=== PATIENT | male | born 1955 | race American Indian/Alaskan Native ===

== ENCOUNTER 2017-03-02 12:40 | Inpatient (IN) | payer BC ==
[2017-03-02] MEDS ORDERED: Albuterol-Ipratrop 3 mg / 0.5 (3 ml) UD INH STA (13:36)
--- NOTE | 2017-03-02 13:44 | ED PDOC ---
HPI: General Adult Time Seen by Provider: 03/02/17 12:59 Chief Complaint (Nursing): Shortness Of Breath Chief Complaint (Provider): Shortness Of Breath History Per: Patient History/Exam Limitations: no limitations Onset/Duration Of Symptoms: Days Current Symptoms Are (Timing): Still Present Additional Complaint(s): 61 year old male with a past medical history of hypertension and pre-diabetes who presents to the emergency department with a complaint of an upper/lower back pain and shortness of breath that radiates around to the chest with tightness described feeling like a "rock." Associated with episodes of vomiting with inability to tolerate solids for several weeks. Reports his right hand at times goes numbness and applying rubbing cream on it to relief the numbness. Denies diarrhea or any blood in stool. PMD: Dr. Brayden Estrada MD Past Medical History Reviewed: Historical Data, Nursing Documentation, Vital Signs Vital Signs: Last Vital Signs Temp 97.7 F 03/02/17 12:50 Pulse 89 03/02/17 18:15 Resp 21 03/02/17 12:50 BP 160/99 H 03/02/17 12:50 Pulse Ox 100 03/02/17 18:15 - Medical History PMH: Diabetes, HTN - Surgical History Other surgeries: 2 Hip replacement and Fractured Foot repair - Family History Family History: States: Unknown Family Hx - Social History Current smoker - smoking cessation education provided: No Ex-Smoker (has not smoked in the last 12 months): Yes Alcohol: None Drugs: Denies - Immunization History Hx Tetanus Toxoid Vaccination: No Hx Influenza Vaccination: Yes Hx Pneumococcal Vaccination: Yes - Home Medications Home Medications: Ambulatory Orders Medication Instructions Recorded Acetazolamide [Diamox Sequels] 500 mg PO BID 06/01/14 - Allergies Allergies/Adverse Reactions: Allergies Allergy/AdvReac Type Severity Reaction Status Date / Time No Known Allergies Allergy Verified 03/02/17 12:50 Review of Systems ROS Statement: Except As Marked, All Systems Reviewed And Found Negative (As per HPI, otherwise negative) Constitutional: Negative for: Fever Cardiovascular: Positive for: Chest Pain, Other (chest tightness) Respiratory: Positive for: Cough, Shortness of Breath. Negative for: Hemoptysis , Sputum Gastrointestinal: Positive for: Vomiting. Negative for: Diarrhea, Hematochezia Genitourinary Male: Positive for: Dysuria (for a long time) Musculoskeletal: Positive for: Back Pain Neurological: Positive for: Numbness (of the right arm intermittent) Physical Exam - Reviewed Nursing Documentation Reviewed: Yes Vital Signs Reviewed: Yes - Physical Exam Appears: Positive for: Non-toxic, In Acute Distress (Frail) Head Exam: Positive for: ATRAUMATIC, NORMAL INSPECTION, NORMOCEPHALIC Skin: Positive for: Warm, Dry, Pallor Eye Exam: Positive for: Normal appearance, EOMI, PERRL ENT: Positive for: Normal ENT Inspection. Negative for: Pharyngeal Erythema Cardiovascular/Chest: Positive for: Regular Rate, Rhythm. Negative for: Murmur Respiratory: Positive for: Normal Breath Sounds, Accessory Muscle Use, Respiratory Distress. Negative for: Wheezing Gastrointestinal/Abdominal: Positive for: Normal Exam, Soft. Negative for: Tenderness Back: Positive for: Other (Diffuse tenderness to the back, paraspinal and lower region). 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 Negative for: Black Stool, Blood Streaked Stool Extremity: Positive for: Normal ROM. Negative for: Pedal Edema, Swelling Neurologic/Psych: Positive for: Alert, Oriented (x3), Gait (Steady). Negative for: Motor/Sensory Deficits, Facial Droop - Laboratory Results Result Diagrams: 03/02/17 13:40 03/02/17 15:10 - ECG ECG: Positive for: Interpreted By Me, Viewed By Me ECG Rhythm: Positive for: Normal ST Segment, Sinus Rhythm, Right Bundle Branch Block Rate: 89 O2 Sat by Pulse Oximetry: 100 (RA) Pulse Ox Interpretation: Normal - Radiology X-Ray: Viewed By Me, Read By Radiologist - Progress Re-evaluation Time: 17:15 Condition: Re-examined, Improving,but remains with symptoms Medical Decision Making Medical Decision Making: Time: 1317 Initial Impression: Initial Plan: --Type and Screen --ABG Shock Panel --B-Type Natriuretic Peptide --CMP --Troponin I --CBC w/ diff --CBC w/ diff --D Dimer (COAG) --PTT & Prothrombin --Chest potable x-ray --Duoneb 3 ml INH --Blood Culture --Peak Flow Pre/Post TX --Reevaluation Time: 1340 --D-Dimer: [id number] (High) --Stool Occult Blood: Negative Time: 1359 --Normal sinus rhythm at 88 bpm with right bundle branch branch block with non specific ST changes. Unchanged from previous EKG in 2015. Time: 1401 --Chest x-ray FINDINGS: LUNGS: The lungs are clear. PLEURA: No significant pleural effusion identified, no pneumothorax apparent. CARDIOVASCULAR: Normal. OSSEOUS STRUCTURES: There is diffuse increased bone density. VISUALIZED UPPER ABDOMEN: Normal. OTHER FINDINGS: None. IMPRESSION: No active pulmonary disease. Diffuse increased bone density could be related to renal osteodystrophy however osteoblastic metastasis is also a differential consideration. Please correlate with history of prostate cancer. Time: 1408 --Angio Chest CT --Head CT --Thoracic Spine CT --Morphine 4 mg IVP Time: 1503 --BNP --BMP --Troponin I --Sodium Chloride 1L IV --Lumbar Spine CT Time: 1507 --Type and Screen --Occult Blood, Stool Time: 1555 --Head CT FINDINGS: HEMORRHAGE: No intracranial hemorrhage. BRAIN: There are focal low-attenuation areas in biparietal subcortical white matter. There is no mass, mass effect or abnormal extra-axial fluid collection. VENTRICLES: There is mild age-related global parenchymal volume loss and proportionate enlargement of the ventricles and cortical sulci. There is a cavum septum pellucidum. CALVARIUM: The skull base and calvarium are normal. PARANASAL SINUSES: Predominantly clear. MASTOID AIR CELLS: Predominantly clear. OTHER FINDINGS: None. IMPRESSION: Multifocal abnormality in biparietal subcortical white matter is nonspecific and statistically most compatible with moderate chronic microangiopathic changes however other differential considerations include age indeterminate infarction and demyelinating disease. If there is a persistent clinical concern , an MRI of the brain without and with intravenous contrast would be helpful for further evaluation. Time: 1605 --Thoracic Spine CT FINDINGS: VERTEBRAE: There is normal alignment of the thoracic vertebral bodies. There is normal thoracic kyphosis. There is no acute fracture. There are diffuse osteolytic and sclerotic lesions throughout the spine including the posterior elements. DISCS/SPINAL CANAL/NEURAL FORAMINA: Evaluation of the spinal canal and discs is limited on noncontrast examination, the spinal canal is grossly patent. PARASPINAL SOFT TISSUES: Unremarkable. OTHER FINDINGS: Moderate right and small left pleural effusions. There is a 7 mm noncalcified nodule in the right upper lobe. There is also diffuse osteolytic and blastic metastasis in the ribs and scapulae. IMPRESSION: 1. Diffuse lytic and blastic osseous metastasis. Diffuse osteolytic and blastic metastasis in the ribs and scapulae. 2. 7 mm nodule in the right upper lobe, nonspecific and could be inflammatory, primary or metastatic in etiology. Dedicated CT scan of the thorax on a nonemergent basis is recommended for complete evaluation of the lungs. 3. Moderate right and small left pleural effusions. Time: 1608 --Lumbar Spine CT FINDINGS: VERTEBRAE: There is normal alignment of the lumbar vertebral bodies. There is normal lumbar lordosis. There is no acute fracture. There is no spondylolysis or spondylolisthesis. There are diffuse osteolytic and blastic lesions in the lumbar spine and visualized pelvis. DISCS/SPINAL CANAL/NEURAL FORAMINA: Evaluation of the discs an nerve roots of cauda equina is limited on noncontrast CT examination. The spinal canal is grossly patent. PARASPINAL SOFT TISSUES: Normal. OTHER FINDINGS: None. IMPRESSION: Diffuse osteolytic and blastic metastasis in the lumbar spine and visualized pelvis. No acute fracture. Time: 1633 --Chest CT FINDINGS: PULMONARY ARTERIES: Examination is of suboptimal diagnostic quality for evaluation of pulmonary embolism due to missed bolus. Allowing for this, there are no large filling defects in the central pulmonary arteries to suggest acute pulmonary embolus evaluation of the peripheral arteries is limited. AORTA: No thoracic aortic aneurysm. LUNGS: 5 mm nodule in the posterior segment of the right upper. There is a 7 mm subpleural nodule in the right lower lobe (series 6, image 70). No focal consolidation. There is mild multifocal subsegmental atelectasis. PLEURAL SPACES: Moderate right and small left pleural effusions. No pneumothorax. HEART: No cardiomegaly. No significant pericardial effusion. LYMPH NODES: No pathologic lymphadenopathy. BONES, CHEST WALL: Diffuse osteolytic and blastic osseous metastasis. OTHER FINDINGS: Unremarkable. IMPRESSION: 1. Suboptimal diagnostic quality for evaluation of pulmonary embolism. Allowing for this, no large central pulmonary embolism. 2. 5 mm and 7 mm nodules in the right upper and lower lobes respectively. These are nonspecific and could be inflammatory or neoplastic in etiology. Short -term interval follow-up is advised. 3. Moderate right and small left pleural effusions. 4. Diffuse lytic and blastic osseous metastasis. 17:[address] Juan Estrada who agrees to admit patient. 17:[address] Morales for suspicion of pulmonary embolism. 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 Scribe~Attestation: Documented by Manjula Robertson and Peri Archuleta, acting as scribes for Kathy Peres MD. Provider Scribe~Attestation: All medical record entries made by the Scribe were at my direction and personally dictated by me. I have reviewed the chart and agree that the record accurately reflects my personal performance of the history, physical exam, medical decision making, and the department course for this patient. I have also personally directed, reviewed, and agree with the discharge instructions and disposition. Disposition - Clinical Impression Clinical Impression: Dyspnea, Pleural effusion, Lung mass, Metastasis to spinal column, Anemia, Hyponatremia, Elevated d-dimer, Respiratory alkalosis - Patient ED Disposition Is Patient to be Admitted: Yes Discussed With DrGloria: Juan Estrada Doctor Will See Patient In The: Hospital Counseled Patient/Family Regarding: Studies Performed, Diagnosis - Disposition Disposition Time: 17:31 Condition: FAIR - Pt Status Changed To: Hospital Disposition Of: Inpatient - Admit Certification Admit to Inpatient:: After my assessment, the patient will require hospitalization for at least two midnights. This is because of the severity of symptoms shown, intensity of services needed, and/or the medical risk in this patient being treated as an outpatient. - POA Present On Arrival: None
[2017-03-02 13:49] LABS: ABG ALLEN TEST YES; ARTERIAL BLOOD GAS HCO3 27.8 mmol/L (21-28); ARTERIAL BLOOD GAS O2 SAT 100.2 % (95-98); ARTERIAL BLOOD GAS PCO2 19 mm/Hg (35-45); ARTERIAL BLOOD GAS PH 7.67 (7.35-7.45); ARTERIAL BLOOD GAS PO2 134 mm/Hg (80-100); ARTERIAL BLOOD GAS TCO2 22.5 mmol/L (22-28)
[2017-03-02] MEDS ORDERED: Albuterol-Ipratrop 3 mg / 0.5 (3 ml) UD ONE (13:58)
--- NOTE | 2017-03-02 14:02 | RAD ---
HISTORY: SOB COMPARISON: No prior. FINDINGS: LUNGS: The lungs are clear. PLEURA: No significant pleural effusion identified, no pneumothorax apparent. CARDIOVASCULAR: Normal. OSSEOUS STRUCTURES: There is diffuse increased bone density. VISUALIZED UPPER ABDOMEN: Normal. OTHER FINDINGS: None. IMPRESSION: No active pulmonary disease. Diffuse increased bone density could be related to renal osteodystrophy however osteoblastic metastasis is also a differential consideration. Please correlate with history of prostate cancer.
[2017-03-02 14:04] LABS: BASO # 0.1 K/uL (0.0-0.2); BASO % 1.5 % (0.0-2.0); EOS # 0.3 K/uL (0.0-0.7); EOS % 5.2 % (0.0-4.0); HEMOGLOBIN 8.8 g/dL (12.0-18.0); LYMPH # 2.1 K/uL (1.0-4.3); LYMPH % 32.6 % (20.0-40.0); MEAN CELL VOLUME 92.8 fl (80.0-94.0); MEAN CORPUSCULAR HEMOGLOBIN 32.7 pg (27.0-31.0); MEAN CORPUSCULAR HGB CONC 35.2 g/dL (33.0-37.0); MEAN PLATELET VOLUME 8.2 fl (7.2-11.7); MONO # 0.7 K/uL (0.0-0.8); MONO % 10.7 % (0.0-10.0); NEUT # 3.2 K/uL (1.8-7.0); NRBC % 0.5 % (0.0-0.0); PLATELET COUNT 118 K/uL (130-400); RBC 2.69 Mil/uL (4.40-5.90); WHITE BLOOD COUNT 6.3 K/uL (4.8-10.8)
[2017-03-02] MEDS ORDERED: Sodium Chloride 0.9% 50 ML IV ONE (14:11)
[2017-03-02] MEDS ORDERED: Iodixanol 320 MG/ML 100 ML BOTTLE IV ONE (14:11)
[2017-03-02 14:16] LABS: INR 1.2 (0.9-1.2); PARTIAL THROMBOPLASTIN TIME 26.2 Seconds (25.6-37.1); PROTHROMBIN TIME 13.1 Seconds (9.8-13.1)
[2017-03-02] MEDS ORDERED: Morphine 4 MG/ML VIAL ONE (14:48)
[2017-03-02] MEDS ORDERED: Sodium Chloride 0.9% 1,000 ML IV STA (15:06)
[2017-03-02 15:40] LABS: BLOOD UREA NITROGEN 9 mg/dl (9-20); CALCIUM 10.4 mg/dL (8.4-10.2); GFR AFRICAN-AMERICAN > 60; GFR NON-AFRICAN AMERICAN > 60
--- NOTE | 2017-03-02 15:56 | CT ---
PROCEDURE: CT HEAD WITHOUT CONTRAST. HISTORY: numbness of right arm COMPARISON: None available. TECHNIQUE: Axial computed tomography images were obtained through the head/brain without intravenous contrast. Radiation dose: Total exam DLP = 850.32 mGy-cm. This CT exam was performed using one or more of the following dose reduction techniques: Automated exposure control, adjustment of the mA and/or kV according to patient size, and/or use of iterative reconstruction technique. FINDINGS: HEMORRHAGE: No intracranial hemorrhage. BRAIN: There are focal low-attenuation areas in biparietal subcortical white matter. There is no mass, mass effect or abnormal extra-axial fluid collection. VENTRICLES: There is mild age-related global parenchymal volume loss and proportionate enlargement of the ventricles and cortical sulci. There is a cavum septum pellucidum. CALVARIUM: The skull base and calvarium are normal. PARANASAL SINUSES: Predominantly clear. MASTOID AIR CELLS: Predominantly clear. OTHER FINDINGS: None. IMPRESSION: Multifocal abnormality in biparietal subcortical white matter is nonspecific and statistically most compatible with moderate chronic microangiopathic changes however other differential considerations include age indeterminate infarction and demyelinating disease. If there is a persistent clinical concern, an MRI of the brain without and with intravenous contrast would be helpful for further evaluation.
[2017-03-02 16:00] LABS: B-TYPE NATRIURETIC PEPTIDE 765 pg/ml (0-900)
[2017-03-02 16:02] LABS: ANISOCYTOSIS SLIGHT; BANDS 2 % (0-2); BASOPHIL 2 % (0-2); EOSINOPHIL 4 % (0-7); HYPOCHROMIC SLIGHT; LYMPHOCYTE 25 % (20-50); METAMYELOCYTE 1 % (0-0); MONOCYTE 12 % (0-10); MYELOCYTE 2 % (0-0); NEUTROPHIL 52 % (42-75); OVALOCYTES SLIGHT; PLATELET ESTIMATE DECREASED (NORMAL); SCHISTOCYTES SLIGHT; TEARDROP CELLS SLIGHT; TOTAL CELLS COUNTED 100
--- NOTE | 2017-03-02 16:06 | CT ---
PROCEDURE: CT Thoracic Spine without contrast HISTORY: Back pain COMPARISON: None. TECHNIQUE: Axial computed tomography images were obtained of the thoracic spine without intravenous contrast. Coronal and sagittal reformatted images were created and reviewed. Radiation dose: Total exam DLP = 847.64 mGy-cm. This CT exam was performed using one or more of the following dose reduction techniques: Automated exposure control, adjustment of the mA and/or kV according to patient size, and/or use of iterative reconstruction technique. FINDINGS: VERTEBRAE: There is normal alignment of the thoracic vertebral bodies. There is normal thoracic kyphosis. There is no acute fracture. There are diffuse osteolytic and sclerotic lesions throughout the spine including the posterior elements. DISCS/SPINAL CANAL/NEURAL FORAMINA: Evaluation of the spinal canal and discs is limited on noncontrast examination, the spinal canal is grossly patent. PARASPINAL SOFT TISSUES: Unremarkable. OTHER FINDINGS: Moderate right and small left pleural effusions. There is a 7 mm noncalcified nodule in the right upper lobe. There is also diffuse osteolytic and blastic metastasis in the ribs and scapulae. IMPRESSION: 1. Diffuse lytic and blastic osseous metastasis. Diffuse osteolytic and blastic metastasis in the ribs and scapulae. 2. 7 mm nodule in the right upper lobe, nonspecific and could be inflammatory, primary or metastatic in etiology. Dedicated CT scan of the thorax on a nonemergent basis is recommended for complete evaluation of the lungs. 3. Moderate right and small left pleural effusions.
--- NOTE | 2017-03-02 16:09 | CT ---
PROCEDURE: CT Lumbar Spine without contrast HISTORY: back pain COMPARISON: None. TECHNIQUE: Axial computed tomography images were obtained of the lumbar spine without the use of intravenous contrast. Coronal and sagittal reformatted images were created and reviewed. Radiation dose: Total exam DLP = mGy-cm. This CT exam was performed using one or more of the following dose reduction techniques: Automated exposure control, adjustment of the mA and/or kV according to patient size, and/or use of iterative reconstruction technique. FINDINGS: VERTEBRAE: There is normal alignment of the lumbar vertebral bodies. There is normal lumbar lordosis. There is no acute fracture. There is no spondylolysis or spondylolisthesis. There are diffuse osteolytic and blastic lesions in the lumbar spine and visualized pelvis. DISCS/SPINAL CANAL/NEURAL FORAMINA: Evaluation of the discs an nerve roots of cauda equina is limited on noncontrast CT examination. The spinal canal is grossly patent. PARASPINAL SOFT TISSUES: Normal. OTHER FINDINGS: None. IMPRESSION: Diffuse osteolytic and blastic metastasis in the lumbar spine and visualized pelvis. No acute fracture.
--- NOTE | 2017-03-02 16:35 | CT ---
PROCEDURE: CT Chest with contrast (Pulmonary Angiogram) HISTORY: Chest pain COMPARISON: None available. TECHNIQUE: Axial computed tomography images were obtained of the chest in the pulmonary arterial phase of enhancement. Coronal and sagittal reformatted images were created and reviewed. Intravenous contrast dose: 90 mL Visipaque 320 Radiation dose: Total exam DLP = 370.80 mGy-cm. This CT exam was performed using one or more of the following dose reduction techniques: Automated exposure control, adjustment of the mA and/or kV according to patient size, and/or use of iterative reconstruction technique. FINDINGS: PULMONARY ARTERIES: Examination is of suboptimal diagnostic quality for evaluation of pulmonary embolism due to missed bolus. Allowing for this, there are no large filling defects in the central pulmonary arteries to suggest acute pulmonary embolus evaluation of the peripheral arteries is limited. AORTA: No thoracic aortic aneurysm. LUNGS: 5 mm nodule in the posterior segment of the right upper. There is a 7 mm subpleural nodule in the right lower lobe (series 6, image 70). No focal consolidation. There is mild multifocal subsegmental atelectasis. PLEURAL SPACES: Moderate right and small left pleural effusions. No pneumothorax. HEART: No cardiomegaly. No significant pericardial effusion. LYMPH NODES: No pathologic lymphadenopathy. BONES, CHEST WALL: Diffuse osteolytic and blastic osseous metastasis. OTHER FINDINGS: Unremarkable. IMPRESSION: 1. Suboptimal diagnostic quality for evaluation of pulmonary embolism. Allowing for this, no large central pulmonary embolism. 2. 5 mm and 7 mm nodules in the right upper and lower lobes respectively. These are nonspecific and could be inflammatory or neoplastic in etiology. Short-term interval follow-up is advised. 3. Moderate right and small left pleural effusions. 4. Diffuse lytic and blastic osseous metastasis.
[2017-03-02] MEDS ORDERED: Enoxaparin 80 mg Syringe SC STA (16:36)
[2017-03-02] MEDS ORDERED: Iohexol 240 (50 ml) PO ONE (16:49)
[2017-03-02] MEDS ORDERED: Piperacillin/Tazobact 3.375 GM in Sodium Chloride 0.9% 100 ML IVPB STA (16:51)
[2017-03-02] MEDS ORDERED: Iohexol 240 (50 ml) ONE (17:10)
[2017-03-02] MEDS ORDERED: Piperacillin/Tazobact 3.375 gm Inj IVPB ONE (17:10)
[2017-03-02] MEDS ORDERED: Sodium Chloride 0.9% 1,000 ML IV SCH (18:45)
--- NOTE | 2017-03-02 18:51 | MRI ---
PROCEDURE: MRI BRAIN WITHOUT CONTRAST HISTORY: abnormal CT head COMPARISON: Noncontrast head CT performed earlier the same day. TECHNIQUE: Multiplanar, multisequence MR images of the brain were obtained without intravenous contrast enhancement. FINDINGS: HEMORRHAGE: None DWI: There is a small focus of restricted diffusion in the left cerebellar hemisphere. BRAIN PARENCHYMA: There are confluent T2/FLAIR hyperintense signal abnormalities in bilateral parietal subcortical white matter and there are multifocal T2/FLAIR hyperintense foci in the subcortical and deep supratentorial white matter. There is no mass, mass effect or abnormal extra-axial fluid collection. The midline sagittal structures are normal. VENTRICLES: There is mild age-related global parenchymal volume loss and proportionate enlargement of the ventricles and cortical sulci. There is a cavum septum pellucidum. CRANIUM: There is abnormal bone marrow signal in the visualized upper cervical spine and questionable T1 hypo intense lesions in the occipital calvarium. ORBITS: Grossly unremarkable. PARANASAL SINUSES/MASTOIDS: Clear VASCULAR SYSTEM: There is normal signal voids in the larger intracranial arteries. OTHER FINDINGS: None. IMPRESSION: 1. Small focus of acute infarction in the left cerebellar hemisphere. 2. Multifocal subcortical and deep supratentorial white matter changes and confluent biparietal subcortical white matter changes are statistically most compatible with moderate chronic microangiopathic changes. 3. Mild age-related global parenchymal volume loss. 4. Osseous metastasis in the upper cervical spine and question of occipital calvarial metastasis. Important findings were discussed with Dr. Minor Peres on 03/02/2017 at 6:45 p.m.
--- NOTE | 2017-03-02 19:39 | CP.PCM.PN ---
Subjective - Date & Time of Evaluation Date of Evaluation: 03/02/17 Time of Evaluation: 22:22 - Subjective Subjective: 61 yo with hx of Prostate Ca with Mets? HTN Cholest Prediabetes presented to ER with complaints of SOB and upper extremity numbness LBP and GI sx Objective - Vital Signs/Intake and Output Vital Signs (last 24 hours): Temp Pulse Resp BP Pulse Ox 97.7 F 89 20 167/82 H 100 03/02/17 12:50 03/02/17 18:16 03/02/17 17:20 03/02/17 17:20 03/02/17 18:16 - Medications Medications: Current Medications Sodium Chloride (Sodium Chloride 0.9%) 1,000 mls @ 125 mls/hr IV .Q8H MITZI Stop: 03/03/17 18:38 Morphine Sulfate (Morphine) 4 mg IVP Q6 PRN PRN Reason: Pain, severe (8-10) - Labs Labs: 03/02/17 13:40 03/02/17 15:10 PT 13.1 Seconds (9.8-13.1) 03/02/17 13:40 INR 1.2 (0.9-1.2) 03/02/17 13:40 APTT 26.2 Seconds (25.6-37.1) 03/02/17 13:40 - Respiratory Exam Respiratory Exam: NORMAL BREATHING PATTERN - Cardiovascular Exam Cardiovascular Exam: REGULAR RHYTHM - GI/Abdominal Exam GI & Abdominal Exam: Normal Bowel Sounds Assessment and Plan - Assessment and Plan (Free Text) Assessment: 61 yo with hx of Prostate Ca with Mets? HTN Cholest Prediabetes SOB and upper extremity numbness LBP and GI sx W/U ordered D/W YOLETTE CAPUTO
[2017-03-02] MEDS ORDERED: Aspirin 325 mg EC Tablets PO ONE (19:46)
--- NOTE | 2017-03-02 20:14 | CT ---
EXAM: CT Abdomen and Pelvis With Intravenous Contrast EXAM DATE/TIME: 03/02/2017 4:48 PM CLINICAL HISTORY: 61 years old, male; Pain; Abdominal pain; Generalized; Prior surgery; Surgery date: 6+ months; Surgery type: Hernia; Additional info: Back pain adbominal pain TECHNIQUE: Axial computed tomography images of the abdomen and pelvis with intravenous contrast. All CT scans at this facility use one or more dose reduction techniques, viz.: automated exposure control; ma/kV adjustment per patient size (including targeted exams where dose is matched to indication; i.e. head); or iterative reconstruction technique. Coronal and sagittal reformatted images were created and reviewed. COMPARISON: No relevant prior studies available. FINDINGS: LIMITATIONS: Streak artifact from arthroplasty devices in the hips bilaterally and from the patient's arms. Mild motion artifact LOWER THORAX: Bilateral pleural effusions, moderate on the right and small on the left. ABDOMEN: LIVER: No acute abnormality of the liver identified. GALLBLADDER AND BILE DUCTS: No CT evidence of acute cholecystitis. No evidence of significant biliary ductal dilatation. PANCREAS: Pancreatic duct is prominent in size, in the proximal pancreas, of uncertain clinical significance. No definite CT evidence of acute pancreatitis, allowing for motion artifact. SPLEEN: No acute abnormality of the spleen identified. ADRENALS: No acute abnormality of the adrenal glands identified. KIDNEYS AND URETERS: Excreted contrast in the collecting systems of the kidneys bilaterally and in the bladder, presumably from a recent study done with IV contrast. No evidence of hydroureteronephrosis. Negative. STOMACH AND BOWEL: Retained stool noted throughout the right hemicolon. Bowel is otherwise unremarkable in appearance. No evidence of small bowel obstruction. No acute abnormality of the stomach or duodenum identified. APPENDIX: Appendix is seen, and is within normal limits in appearance. PELVIS: BLADDER: No acute abnormality of the bladder identified. Negative. REPRODUCTIVE: No acute abnormality of the reproductive organs is seen, allowing for streak artifact from the hip arthroplasties. ABDOMEN and PELVIS: INTRAPERITONEAL SPACE: No evidence of free intraperitoneal air or fluid. BONES/JOINTS: Diffusely abnormal appearance of the bony structures, which demonstrate extensive areas of sclerosis and lytic change, compatible with diffuse bony metastatic disease. No acute fractures are seen. No evidence of acute vertebral compression fractures. SOFT TISSUES: No acute abnormality of the visualized soft tissues is seen. VASCULATURE: No evidence of abdominal aortic aneurysm. No evidence of periaortic hemorrhage. LYMPH NODES: No evidence of diffuse lymphadenopathy. IMPRESSION: - Bilateral pleural effusions. - Otherwise, no evidence of significant acute process. - Diffuse bony abnormality, most compatible with extensive bony metastatic disease - See above for remaining findings.
[2017-03-02 22:07] LABS: IRON 215 ug/dL (49-181)
[2017-03-02 22:16] LABS: TOTAL IRON BINDING CAPACITY 305 ug/dL (250-450)
[2017-03-02 22:20] LABS: % IRON SATURATION 70 % (20-55)
[2017-03-02] MEDS ORDERED: Influenza Vaccine 18yr & older 0.5 ML/45 MCG SYR IM ONE (23:49)
[2017-03-03] MEDS ORDERED: Sodium Chloride 0.45% 1,000 ML IV SCH (00:45)
--- NOTE | 2017-03-03 08:54 | CP.PCM.CON ---
History of Present Illness - History of Present Illness History of Present Illness: 61 year old male with a history of former tobacco abuse, admitted with back/rib pain, shortness of breath, found to have diffuse bone lesions concerning for metastatic disease. The patient reports to not eating well for the past 2-3 months, associated with weightloss. Over the last month he notes to worsening upper back and diffuse chest pain. Because of the pain occurring with deep breaths, he came to the ER. In the ER a CT angio of the chest was negative for central PE but revealed diffuse bone lesions, B/L pleural effusions, and 2 subcentimeter lung lesions. An MRI of the brain revealed an acute cerebellar stroke. Past medical history: ?HTN Past surgical history: None Family history: Father had lung cancer Social history: Former tobacco abuse, denies alcohol, and illicit drug use. Allergies: NKA Revew of systems: All remaining review of systems including HEENT, cardiovascular, respiratory, gastrointestinal, genitourinary, musculoskeletal, dermatologic, neurologic, and psychiatric are negative unless mentioned in the HPI. Past Patient History - Infectious Disease Hx of Infectious Diseases: None - Past Medical History & Family History Past Medical History?: Yes - Past Social History Smoking Status: Former Smoker - CARDIAC Hx Hypertension: Yes - MUSCULOSKELETAL/RHEUMATOLOGICAL Hx Falls: Yes - PSYCHIATRIC Hx Substance Use: No - SURGICAL HISTORY Other/Comment: Patient had left hip replacement 2010, right hip replacement 2013 -- was in subacute rehab for 2 weeks post surg in 2013 - ANESTHESIA Hx Anesthesia: Yes Hx Anesthesia Reactions: No Meds Allergies/Adverse Reactions: Allergies Allergy/AdvReac Type Severity Reaction Status Date / Time No Known Allergies Allergy Verified 03/02/17 12:50 - Medications Medications: Current Medications Home Med (Bimatoprost [Lumigan]) 1 drop TOP DAILY [facility] Home Med (Difluprednate [Durezol]) 1 drop TOP QOTHERDAY [facility] Sodium Chloride (Sodium Chloride 0.45%) 1,000 mls @ 75 mls/hr IV .[id number] [facility] Stop: 03/04/17 00:32 Last Admin: 03/03/17 00:48 Dose: 75 mls/hr Morphine Sulfate (Morphine) 4 mg IVP Q6 PRN PRN Reason: Pain, severe (8-10) Last Admin: 03/02/17 21:47 Dose: 4 mg Physical Exam - Head Exam Head Exam: ATRAUMATIC - Eye Exam Eye Exam: Normal appearance - ENT Exam ENT Exam: Mucous Membranes Dry - Respiratory Exam Respiratory Exam: Decreased Breath Sounds - Cardiovascular Exam Cardiovascular Exam: +S1, +S2 - GI/Abdominal Exam GI & Abdominal Exam: Normal Bowel Sounds - Extremities Exam Extremities exam: Positive for: normal inspection - Neurological Exam Neurological exam: Oriented x3 - Psychiatric Exam Psychiatric exam: Normal Affect, Normal Mood - Skin Skin Exam: Warm Results - Vital Signs Recent Vital Signs: Last Vital Signs Temp 98.1 F 03/03/17 08:02 Pulse 70 03/03/17 08:02 Resp 18 03/03/17 08:02 BP 116/69 03/03/17 08:02 Pulse Ox 95 03/03/17 08:02 - Labs Result Diagrams: 03/04/17 06:30 03/04/17 06:30 Labs: Laboratory Results - last 24 hr 03/02/17 03/02/17 03/02/17 13:36 13:39 13:40 WBC 6.3 RBC 2.69 L Hgb 8.8 L Hct 25.0 L MCV 92.8 MCH 32.7 H MCHC 35.2 RDW 18.0 H Plt Count 118 L MPV 8.2 Neut % (Auto) 50.0 Lymph % (Auto) 32.6 [place] % (Auto) 10.7 H Eos % (Auto) 5.2 H Baso % (Auto) 1.5 Neut # 3.2 Lymph # 2.1 [place] # 0.7 Eos # 0.3 Baso # 0.1 Neutrophils % (Manual) 52 Band Neutrophils % 2 Lymphocytes % (Manual) 25 Monocytes % (Manual) 12 H Eosinophils % (Manual) 4 Basophils % (Manual) 2 Metamyelocytes % 1 H Myelocytes % 2 H Platelet Estimate Decreased L Hypochromasia (manual) Slight Anisocytosis (manual) Slight Tear Drop Cells Slight Ovalocytes Slight Schistocytes Slight PT INR APTT D-Dimer, Quantitative pCO2 19 L* pO2 134 H HCO3 27.8 ABG pH 7.67 H* ABG Total CO2 22.5 ABG O2 Saturation 100.2 H ABG Base Excess 3.6 H Bang Test Yes ABG Potassium 4.2 A-a O2 Difference 42.0 Sodium 126.0 L Chloride 98.0 Glucose 106 Lactate 2.1 FiO2 28.0 Crit Value Called To Md belkys thornton Crit Value Called By 23 Crit Value Read Back Y Blood Gas Notified Time 1348 Potassium Carbon Dioxide Anion Gap BUN Creatinine Est GFR ( Amer) Est GFR (Non-Af Amer) POC Glucose (mg/dL) 89 Random Glucose Calcium Iron TIBC % Saturation Ferritin Troponin I NT-Pro-B Natriuret Pep Arterial Blood Potassium 4.2 Stool Occult Blood Blood Type Antibody Screen BBK History Checked 03/02/17 03/02/17 03/02/17 13:40 15:10 15:10 WBC RBC Hgb Hct MCV MCH MCHC RDW Plt Count MPV Neut % (Auto) Lymph % (Auto) [place] % (Auto) Eos % (Auto) Baso % (Auto) Neut # Lymph # [place] # Eos # Baso # Neutrophils % (Manual) Band Neutrophils % Lymphocytes % (Manual) Monocytes % (Manual) Eosinophils % (Manual) Basophils % (Manual) Metamyelocytes % Myelocytes % Platelet Estimate Hypochromasia (manual) Anisocytosis (manual) Tear Drop Cells Ovalocytes Schistocytes PT 13.1 INR 1.2 APTT 26.2 D-Dimer, Quantitative 4972 H pCO2 pO2 HCO3 ABG pH ABG Total CO2 ABG O2 Saturation ABG Base Excess Bang Test ABG Potassium A-a O2 Difference Sodium 130 L Chloride 93 L Glucose Lactate FiO2 Crit Value Called To Crit Value Called By Crit Value Read Back Blood Gas Notified Time Potassium 4.1 Carbon Dioxide 21 L Anion Gap 20 BUN 9 Creatinine 0.7 L Est GFR ( Amer) > 60 Est GFR (Non-Af Amer) > 60 POC Glucose (mg/dL) Random Glucose 96 Calcium 10.4 H Iron TIBC % Saturation Ferritin Troponin I 0.0170 NT-Pro-B Natriuret Pep 765 Arterial Blood Potassium Stool Occult Blood Negative Blood Type Antibody Screen BBK History Checked 03/02/17 03/02/17 03/02/17 15:10 18:44 20:47 WBC RBC Hgb Hct MCV MCH MCHC RDW Plt Count MPV Neut % (Auto) Lymph % (Auto) [place] % (Auto) Eos % (Auto) Baso % (Auto) Neut # Lymph # [place] # Eos # Baso # Neutrophils % (Manual) Band Neutrophils % Lymphocytes % (Manual) Monocytes % (Manual) Eosinophils % (Manual) Basophils % (Manual) Metamyelocytes % Myelocytes % Platelet Estimate Hypochromasia (manual) Anisocytosis (manual) Tear Drop Cells Ovalocytes Schistocytes PT INR APTT D-Dimer, Quantitative pCO2 pO2 HCO3 ABG pH ABG Total CO2 ABG O2 Saturation ABG Base Excess Bang Test ABG Potassium A-a O2 Difference Sodium Chloride Glucose Lactate FiO2 Crit Value Called To Crit Value Called By Crit Value Read Back Blood Gas Notified Time Potassium Carbon Dioxide Anion Gap BUN Creatinine Est GFR ( Amer) Est GFR (Non-Af Amer) POC Glucose (mg/dL) Random Glucose Calcium Iron 215 H TIBC 305 % Saturation 70 H Ferritin 711.0 H Troponin I NT-Pro-B Natriuret Pep Arterial Blood Potassium Stool Occult Blood Blood Type A POSITIVE Antibody Screen Negative BBK History Checked No verified bt 03/03/17 05:26 WBC RBC Hgb Hct MCV MCH MCHC RDW Plt Count MPV Neut % (Auto) Lymph % (Auto) [place] % (Auto) Eos % (Auto) Baso % (Auto) Neut # Lymph # [place] # Eos # Baso # Neutrophils % (Manual) Band Neutrophils % Lymphocytes % (Manual) Monocytes % (Manual) Eosinophils % (Manual) Basophils % (Manual) Metamyelocytes % Myelocytes % Platelet Estimate Hypochromasia (manual) Anisocytosis (manual) Tear Drop Cells Ovalocytes Schistocytes PT INR APTT D-Dimer, Quantitative pCO2 pO2 HCO3 ABG pH ABG Total CO2 ABG O2 Saturation ABG Base Excess Bang Test ABG Potassium A-a O2 Difference Sodium Chloride Glucose Lactate FiO2 Crit Value Called To Crit Value Called By Crit Value Read Back Blood Gas Notified Time Potassium Carbon Dioxide Anion Gap BUN Creatinine Est GFR ( Amer) Est GFR (Non-Af Amer) POC Glucose (mg/dL) 89 Random Glucose Calcium Iron TIBC % Saturation Ferritin Troponin I NT-Pro-B Natriuret Pep Arterial Blood Potassium Stool Occult Blood Blood Type Antibody Screen BBK History Checked Assessment & Plan (1) Bone lesion Assessment and Plan: concerning for metastatic disease will check tumor markers ? prostate ? multiple myeloma will need biopsy of most accessible lesion Status: Acute (2) Thrombocytopenia Assessment and Plan: mild will check HIV and hepatitis panel ? related to bone mets Status: Acute (3) Anemia Assessment and Plan: will check ferritin, retic count, b12, folate to further characterize Thank you for this interesting consult. Status: Acute
[2017-03-03] MEDS ORDERED: Patient's Own Med (Bimatoprost [Lumigan] 1 DROP) TOP SCH (09:00)
[2017-03-03 10:51] LABS: HDL CHOLESTEROL 62 MG/DL (30-70)
[2017-03-03 11:02] LABS: LDL CHOLESTEROL 113 mg/dL (0-129)
--- NOTE | 2017-03-03 11:08 | MRI ---
PROCEDURE: MR LUMBAR SPINE WITHOUT CONTRAST HISTORY: back pain mets to spine COMPARISON: Lumbar spine CT without contrast 03/12/2017. TECHNIQUE: Multiecho multiplanar sequences were performed through the lumbar spine without the use of intravenous contrast. FINDINGS: Normal lumbar lordosis. Vertebral body heights are preserved. Matter lopez Marrow signal throughout the vertebral bodies grossly abnormal including upper visualize sacrum and the posterior elements diffusely. Inferior thoracic spine as also involved in a pattern of metastatic disease to the spine. Further, incidental capture of the visualized iliac bones is also grossly abnormal indicative of the same. Conus medullaris unremarkable at the level of L1 Retroperitoneal lymphadenopathy is suspected with paraspinal soft tissues otherwise unremarkable appearing. No overt MR site of epidural metastases at this time. No gross intradural metastases either however MRI with contrast is significantly more sensitive for small to medium size epidural or intradural metastases T12-L1: No disc herniation, spinal canal stenosis or neural foraminal narrowing. L1-2: No disc herniation, spinal canal stenosis or neural foraminal narrowing. L2-3: No disc herniation, spinal canal stenosis or neural foraminal narrowing. L3-4: Bilateral facet joint arthropathy is moderate but often narrow the lateral recesses symmetrically at this level without disc herniation evident. No significant neural foraminal stenosis. L4-5: A moderate central canal stenosis results from gross facet joint arthropathy combined with limited generalized disc bulging. No disc herniation. Mild bilateral neural foraminal stenosis identified. L5-S1: No disc herniation, spinal canal stenosis or neural foraminal narrowing. OTHER FINDINGS: Incidental note is made of a grossly distended urinary bladder. IMPRESSION: Gross multifocal bony metastases seen throughout the visualized inferior thoracic, entire lumbar and visualized sacral spine as discussed above. Vertebral bodies are are affected as well as posterior elements diffusely. Iliac bones are also affected. No overt MR sign in this unenhanced exam of epidural or intrathecal metastases however MRI with and without contrast is more sensitive for further evaluation of these anatomical sections. Degenerative central canal stenosis is moderate at L4-5 and borderline at L3-4 as discussed above.
--- NOTE | 2017-03-03 11:55 | MRI ---
PROCEDURE: MR THORACIC SPINE WITHOUT CONTRAST HISTORY: back pain mets to spine COMPARISON: None available. TECHNIQUE: Multiecho multiplanar sequences were performed through the thoracic spine without the use of intravenous contrast. FINDINGS: ALIGNMENT: Normal thoracic spinal alignment. Normal thoracic kyphosis. VERTEBRA: The vertebral body heights appear adequately preserved however overall Marrow signal is grossly distorted by innumerable metastases throughout the entire thoracic spine including the cervical spine was imaged incidentally captured in the counter series provided initially. Portions of the vertebral body are expanded posteriorly encroaching the left ventral nerve roots at the T7 level, bilateral ventral nerve roots at T9 with a mild central canal stenosis resulting air, and bilateral T11 nerve roots with a borderline central canal stenosis resulting at this level. No gross epidural disturbance is identified in this unenhanced MR examination. No definite disc herniation appreciable. PARASPINAL SOFT TISSUES: Grossly nonfocal as imaged. CORD: Unremarkable thoracic cord. No volume loss, signal abnormality or syrinx. The conus appears unremarkable terminating at the upper lumbar spine. OTHER FINDINGS: None. IMPRESSION: Diffuse metastatic changes seen throughout the thoracic spine including posterior elements with incidental involving the cervical spine also identified diffusely. No severe spinal stenosis results though limited central stenosis appreciated at T9 and ventral nerve roots are also encroached at T11 and T7 levels due to deformities of the posterior henley of the vertebral bodies at these levels. No disc herniation throughout the examination. No definitive acute fracture or spondylolisthesis identified.
--- NOTE | 2017-03-03 14:15 | CP.PCM.CON ---
History of Present Illness - History of Present Illness History of Present Illness: pt is seen and examined, full consult is dictated #[id number] 1. hyponatremia, most likely sec to intravascular volume depletion s/o siadh sec to pian and mets 2. r/o metastatic disease, r/o prostate ca check cea,ca19-9, AFP, psa, urine lytes, osm, cr, tsh, serum cortisol change ivf to ns at 70- 80 ml/hr bmp in am check pth intact, pth-rp for hypercalcemia Past Patient History - Infectious Disease Hx of Infectious Diseases: None - Past Medical History & Family History Past Medical History?: Yes - Past Social History Smoking Status: Former Smoker - CARDIAC Hx Hypertension: Yes - MUSCULOSKELETAL/RHEUMATOLOGICAL Hx Falls: Yes - PSYCHIATRIC Hx Substance Use: No - SURGICAL HISTORY Other/Comment: Patient had left hip replacement 2010, right hip replacement 2013 -- was in subacute rehab for 2 weeks post surg in 2013 - ANESTHESIA Hx Anesthesia: Yes Hx Anesthesia Reactions: No Meds Allergies/Adverse Reactions: Allergies Allergy/AdvReac Type Severity Reaction Status Date / Time No Known Allergies Allergy Verified 03/02/17 12:50 - Medications Medications: Current Medications Aspirin (Aspirin Chewable) 81 mg PO DAILY [facility] Enoxaparin Sodium (Lovenox) 40 mg SC DAILY [facility] PRN Reason: Protocol Home Med (Bimatoprost [Lumigan]) 1 drop TOP DAILY [facility] Home Med (Difluprednate [Durezol]) 1 drop TOP QOTHERDAY [facility] Sodium Chloride (Sodium Chloride 0.45%) 1,000 mls @ 75 mls/hr IV .[id number] [facility] Stop: 03/04/17 00:32 Last Admin: 03/03/17 00:48 Dose: 75 mls/hr Morphine Sulfate (Morphine) 4 mg IVP Q6 PRN PRN Reason: Pain, severe (8-10) Last Admin: 03/02/17 21:47 Dose: 4 mg Results - Vital Signs Recent Vital Signs: Last Vital Signs Temp 97.6 F 03/03/17 13:49 Pulse 93 H 03/03/17 13:49 Resp 18 03/03/17 13:49 BP 120/77 03/03/17 13:49 Pulse Ox 96 03/03/17 13:49 - Labs Result Diagrams: 03/02/17 13:40 03/02/17 15:10 Labs: Laboratory Results - last 24 hr 03/02/17 03/02/17 03/02/17 13:40 13:40 15:10 WBC 6.3 RBC 2.69 L Hgb 8.8 L Hct 25.0 L MCV 92.8 MCH 32.7 H MCHC 35.2 RDW 18.0 H Plt Count 118 L MPV 8.2 Neut % (Auto) 50.0 Lymph % (Auto) 32.6 [place] % (Auto) 10.7 H Eos % (Auto) 5.2 H Baso % (Auto) 1.5 Neut # 3.2 Lymph # 2.1 [place] # 0.7 Eos # 0.3 Baso # 0.1 Neutrophils % (Manual) 52 Band Neutrophils % 2 Lymphocytes % (Manual) 25 Monocytes % (Manual) 12 H Eosinophils % (Manual) 4 Basophils % (Manual) 2 Metamyelocytes % 1 H Myelocytes % 2 H Platelet Estimate Decreased L Hypochromasia (manual) Slight Anisocytosis (manual) Slight Tear Drop Cells Slight Ovalocytes Slight Schistocytes Slight PT 13.1 INR 1.2 APTT 26.2 D-Dimer, Quantitative 4972 H Sodium 130 L Potassium 4.1 Chloride 93 L Carbon Dioxide 21 L Anion Gap 20 BUN 9 Creatinine 0.7 L Est GFR ( Amer) > 60 Est GFR (Non-Af Amer) > 60 POC Glucose (mg/dL) Random Glucose 96 Calcium 10.4 H Iron TIBC % Saturation Transferrin Ferritin Troponin I 0.0170 NT-Pro-B Natriuret Pep 765 Triglycerides Cholesterol LDL Cholesterol Direct HDL Cholesterol Carcinoembryonic Ag Prostate Specific Ag TSH 3rd Generation Stool Occult Blood Blood Type Antibody Screen BBK History Checked 03/02/17 03/02/17 03/02/17 15:10 15:10 18:44 WBC RBC Hgb Hct MCV MCH MCHC RDW Plt Count MPV Neut % (Auto) Lymph % (Auto) [place] % (Auto) Eos % (Auto) Baso % (Auto) Neut # Lymph # [place] # Eos # Baso # Neutrophils % (Manual) Band Neutrophils % Lymphocytes % (Manual) Monocytes % (Manual) Eosinophils % (Manual) Basophils % (Manual) Metamyelocytes % Myelocytes % Platelet Estimate Hypochromasia (manual) Anisocytosis (manual) Tear Drop Cells Ovalocytes Schistocytes PT INR APTT D-Dimer, Quantitative Sodium Potassium Chloride Carbon Dioxide Anion Gap BUN Creatinine Est GFR ( Amer) Est GFR (Non-Af Amer) POC Glucose (mg/dL) Random Glucose Calcium Iron TIBC % Saturation Transferrin Ferritin 711.0 H Troponin I NT-Pro-B Natriuret Pep Triglycerides Cholesterol LDL Cholesterol Direct HDL Cholesterol Carcinoembryonic Ag Prostate Specific Ag TSH 3rd Generation Stool Occult Blood Negative Blood Type A POSITIVE Antibody Screen Negative BBK History Checked No verified bt 03/02/17 03/02/17 03/03/17 18:44 20:47 05:26 WBC RBC Hgb Hct MCV MCH MCHC RDW Plt Count MPV Neut % (Auto) Lymph % (Auto) [place] % (Auto) Eos % (Auto) Baso % (Auto) Neut # Lymph # [place] # Eos # Baso # Neutrophils % (Manual) Band Neutrophils % Lymphocytes % (Manual) Monocytes % (Manual) Eosinophils % (Manual) Basophils % (Manual) Metamyelocytes % Myelocytes % Platelet Estimate Hypochromasia (manual) Anisocytosis (manual) Tear Drop Cells Ovalocytes Schistocytes PT INR APTT D-Dimer, Quantitative Sodium Potassium Chloride Carbon Dioxide Anion Gap BUN Creatinine Est GFR ( Amer) Est GFR (Non-Af Amer) POC Glucose (mg/dL) 89 Random Glucose Calcium Iron 215 H TIBC 305 % Saturation 70 H Transferrin 260.14 Ferritin Troponin I NT-Pro-B Natriuret Pep Triglycerides Cholesterol LDL Cholesterol Direct HDL Cholesterol Carcinoembryonic Ag Prostate Specific Ag TSH 3rd Generation Stool Occult Blood Blood Type Antibody Screen BBK History Checked 03/03/17 03/03/17 03/03/17 09:50 10:43 11:55 WBC RBC Hgb Hct MCV MCH MCHC RDW Plt Count MPV Neut % (Auto) Lymph % (Auto) [place] % (Auto) Eos % (Auto) Baso % (Auto) Neut # Lymph # [place] # Eos # Baso # Neutrophils % (Manual) Band Neutrophils % Lymphocytes % (Manual) Monocytes % (Manual) Eosinophils % (Manual) Basophils % (Manual) Metamyelocytes % Myelocytes % Platelet Estimate Hypochromasia (manual) Anisocytosis (manual) Tear Drop Cells Ovalocytes Schistocytes PT INR APTT D-Dimer, Quantitative Sodium Potassium Chloride Carbon Dioxide Anion Gap BUN Creatinine Est GFR ( Amer) Est GFR (Non-Af Amer) POC Glucose (mg/dL) Random Glucose Calcium Iron TIBC % Saturation Transferrin Ferritin Troponin I NT-Pro-B Natriuret Pep Triglycerides 108 Cholesterol 202 H LDL Cholesterol Direct 113 HDL Cholesterol 62 Carcinoembryonic Ag 2.2 Prostate Specific Ag 3110 H TSH 3rd Generation 1.79 Stool Occult Blood Blood Type Antibody Screen BBK History Checked 03/03/17 13:43 WBC RBC Hgb Hct MCV MCH MCHC RDW Plt Count MPV Neut % (Auto) Lymph % (Auto) [place] % (Auto) Eos % (Auto) Baso % (Auto) Neut # Lymph # [place] # Eos # Baso # Neutrophils % (Manual) Band Neutrophils % Lymphocytes % (Manual) Monocytes % (Manual) Eosinophils % (Manual) Basophils % (Manual) Metamyelocytes % Myelocytes % Platelet Estimate Hypochromasia (manual) Anisocytosis (manual) Tear Drop Cells Ovalocytes Schistocytes PT INR APTT D-Dimer, Quantitative Sodium Potassium Chloride Carbon Dioxide Anion Gap BUN Creatinine Est GFR ( Amer) Est GFR (Non-Af Amer) POC Glucose (mg/dL) 101 Random Glucose Calcium Iron TIBC % Saturation Transferrin Ferritin Troponin I NT-Pro-B Natriuret Pep Triglycerides Cholesterol LDL Cholesterol Direct HDL Cholesterol Carcinoembryonic Ag Prostate Specific Ag TSH 3rd Generation Stool Occult Blood Blood Type Antibody Screen BBK History Checked
--- NOTE | 2017-03-03 15:21 | CP.PCM.CON ---
History of Present Illness - History of Present Illness History of Present Illness: 61 year old male who was admitted because of severe back pain with shortness of breath and a right sided pleural effusion. He had been feeling poorly at home for two weeks [facility] with steadily worsening back and 'rib' pain, poor appetite and episodes of vomiting. He did have some cough, but no sputum or hemoptysis. He was unaware of fever or chills. He denies any prior complaints of dyspnea or nocturnal awakenings from respiratory related symptoms. He does have a history of bronchial asthma as a youth, but this has been quiescent for more than 30 years. He is a former cigarette smoker of 2 PPD, but quit 25 years ago. There is a family history of lung cancer in his father. Past Patient History - Infectious Disease Hx of Infectious Diseases: None - Past Medical History & Family History Past Medical History?: Yes - Past Social History Smoking Status: Former Smoker (former 2PPD smoker who stopped 25 years ago.) Chewing Tobacco Use: No Cigar Use: No Alcohol: None (former heavy alcohol intake. none for 35 years.) Drugs: Denies - CARDIAC Hx Hypertension: Yes - PULMONARY Hx Asthma: Yes - NEUROLOGICAL Hx Neurological Disorder: No - HEENT Hx Glaucoma: Yes - RENAL Hx Chronic Kidney Disease: No - ENDOCRINE/METABOLIC Hx Endocrine Disorders: No Hx Diabetes Insipidus: Yes (pre-diabetes) - HEMATOLOGICAL/ONCOLOGICAL Hx Blood Disorders: No - INTEGUMENTARY Hx Dermatological Problems: No - MUSCULOSKELETAL/RHEUMATOLOGICAL Hx Degenerative Joint Disease: Yes (both hips) Hx Falls: Yes Hx Fractures: Yes - GASTROINTESTINAL Hx Gastrointestinal Disorders: No - GENITOURINARY/GYNECOLOGICAL Hx Genitourinary Disorders: No - PSYCHIATRIC Hx Substance Use: Yes (alcohol) - SURGICAL HISTORY Hx Eye Surgery: Yes Hx Joint Replacement: Yes Hx Orthopedic Surgery: Yes Other/Comment: Patient had left hip replacement 2010, right hip replacement 2013 -- was in subacute rehab for 2 weeks post surg in 2013 - ANESTHESIA Hx Anesthesia: Yes Hx Anesthesia Reactions: No Meds Allergies/Adverse Reactions: Allergies Allergy/AdvReac Type Severity Reaction Status Date / Time No Known Allergies Allergy Verified 03/02/17 12:50 - Medications Medications: Current Medications Aspirin (Aspirin Chewable) 81 mg PO DAILY [facility] Enoxaparin Sodium (Lovenox) 40 mg SC DAILY [facility] PRN Reason: Protocol Home Med (Bimatoprost [Lumigan]) 1 drop TOP DAILY [facility] Home Med (Difluprednate [Durezol]) 1 drop TOP QOTHERDAY [facility] Sodium Chloride (Sodium Chloride 0.45%) 1,000 mls @ 75 mls/hr IV .[id number] [facility] Stop: 03/04/17 00:32 Last Admin: 03/03/17 00:48 Dose: 75 mls/hr Morphine Sulfate (Morphine) 4 mg IVP Q6 PRN PRN Reason: Pain, severe (8-10) Last Admin: 03/02/17 21:47 Dose: 4 mg Physical Exam - Additional Findings Additional findings: Thin black male who is in no acute distress at this time. Pharynx is pink and and mucous membranes are moist, no exudates. Neck is supple and trachea midline. No visible JVD, no carotid bruit. No palpable thyromegaly. No cervical or supraclavicular adenopathy. Dullness on chest percussion is noted in the right lung base posteriorly. Breath sounds are diminished bilaterally, absent in the right base posteriorly. Few scattered sonorous rhonchi are heard bilaterally. No wheezes or bronchial breath sounds. Occasional scattered dry rales are present in the lower lobes. No audible rub. Heart sounds are distant, rhythm is regular. No murmur heard. Abdomen is soft and non-tender. NABS. No dependant edema, no cyanosis. Results - Vital Signs Recent Vital Signs: Last Vital Signs Temp 97.6 F 03/03/17 13:49 Pulse 93 H 03/03/17 13:49 Resp 18 03/03/17 13:49 BP 120/77 03/03/17 13:49 Pulse Ox 96 03/03/17 13:49 - Labs Result Diagrams: 03/04/17 06:30 03/04/17 06:30 Labs: Laboratory Results - last 24 hr 03/02/17 03/02/17 03/02/17 13:40 15:10 15:10 Neutrophils % (Manual) 52 Band Neutrophils % 2 Lymphocytes % (Manual) 25 Monocytes % (Manual) 12 H Eosinophils % (Manual) 4 Basophils % (Manual) 2 Metamyelocytes % 1 H Myelocytes % 2 H Platelet Estimate Decreased L Hypochromasia (manual) Slight Anisocytosis (manual) Slight Tear Drop Cells Slight Ovalocytes Slight Schistocytes Slight Sodium 130 L Potassium 4.1 Chloride 93 L Carbon Dioxide 21 L Anion Gap 20 BUN 9 Creatinine 0.7 L Est GFR ( Amer) > 60 Est GFR (Non-Af Amer) > 60 POC Glucose (mg/dL) Random Glucose 96 Serum Osmolality Calcium 10.4 H Iron TIBC % Saturation Transferrin Ferritin Troponin I 0.0170 NT-Pro-B Natriuret Pep 765 Triglycerides Cholesterol LDL Cholesterol Direct HDL Cholesterol Alpha Fetoprotein Carcinoembryonic Ag Prostate Specific Ag TSH 3rd Generation Stool Occult Blood Negative Blood Type Antibody Screen BBK History Checked 03/02/17 03/02/17 03/02/17 15:10 18:44 18:44 Neutrophils % (Manual) Band Neutrophils % Lymphocytes % (Manual) Monocytes % (Manual) Eosinophils % (Manual) Basophils % (Manual) Metamyelocytes % Myelocytes % Platelet Estimate Hypochromasia (manual) Anisocytosis (manual) Tear Drop Cells Ovalocytes Schistocytes Sodium Potassium Chloride Carbon Dioxide Anion Gap BUN Creatinine Est GFR ( Amer) Est GFR (Non-Af Amer) POC Glucose (mg/dL) Random Glucose Serum Osmolality Calcium Iron TIBC % Saturation Transferrin 260.14 Ferritin 711.0 H Troponin I NT-Pro-B Natriuret Pep Triglycerides Cholesterol LDL Cholesterol Direct HDL Cholesterol Alpha Fetoprotein Carcinoembryonic Ag Prostate Specific Ag TSH 3rd Generation Stool Occult Blood Blood Type A POSITIVE Antibody Screen Negative BBK History Checked No verified bt 03/02/17 03/03/17 03/03/17 20:47 05:26 09:50 Neutrophils % (Manual) Band Neutrophils % Lymphocytes % (Manual) Monocytes % (Manual) Eosinophils % (Manual) Basophils % (Manual) Metamyelocytes % Myelocytes % Platelet Estimate Hypochromasia (manual) Anisocytosis (manual) Tear Drop Cells Ovalocytes Schistocytes Sodium Potassium Chloride Carbon Dioxide Anion Gap BUN Creatinine Est GFR ( Amer) Est GFR (Non-Af Amer) POC Glucose (mg/dL) 89 Random Glucose Serum Osmolality Calcium Iron 215 H TIBC 305 % Saturation 70 H Transferrin Ferritin Troponin I NT-Pro-B Natriuret Pep Triglycerides Cholesterol LDL Cholesterol Direct HDL Cholesterol Alpha Fetoprotein Carcinoembryonic Ag Prostate Specific Ag 3110 H TSH 3rd Generation Stool Occult Blood Blood Type Antibody Screen BBK History Checked 03/03/17 03/03/17 03/03/17 10:43 11:45 11:55 Neutrophils % (Manual) Band Neutrophils % Lymphocytes % (Manual) Monocytes % (Manual) Eosinophils % (Manual) Basophils % (Manual) Metamyelocytes % Myelocytes % Platelet Estimate Hypochromasia (manual) Anisocytosis (manual) Tear Drop Cells Ovalocytes Schistocytes Sodium Potassium Chloride Carbon Dioxide Anion Gap BUN Creatinine Est GFR ( Amer) Est GFR (Non-Af Amer) POC Glucose (mg/dL) Random Glucose Serum Osmolality Calcium Iron TIBC % Saturation Transferrin Ferritin Troponin I NT-Pro-B Natriuret Pep Triglycerides 108 Cholesterol 202 H LDL Cholesterol Direct 113 HDL Cholesterol 62 Alpha Fetoprotein 2.1 Carcinoembryonic Ag 2.2 Prostate Specific Ag TSH 3rd Generation 1.79 Stool Occult Blood Blood Type Antibody Screen BBK History Checked 03/03/17 03/03/17 13:40 13:43 Neutrophils % (Manual) Band Neutrophils % Lymphocytes % (Manual) Monocytes % (Manual) Eosinophils % (Manual) Basophils % (Manual) Metamyelocytes % Myelocytes % Platelet Estimate Hypochromasia (manual) Anisocytosis (manual) Tear Drop Cells Ovalocytes Schistocytes Sodium Potassium Chloride Carbon Dioxide Anion Gap BUN Creatinine Est GFR ( Amer) Est GFR (Non-Af Amer) POC Glucose (mg/dL) 101 Random Glucose Serum Osmolality 286 Calcium Iron TIBC % Saturation Transferrin Ferritin Troponin I NT-Pro-B Natriuret Pep Triglycerides Cholesterol LDL Cholesterol Direct HDL Cholesterol Alpha Fetoprotein Carcinoembryonic Ag Prostate Specific Ag TSH 3rd Generation Stool Occult Blood Blood Type Antibody Screen BBK History Checked Assessment & Plan (1) Dyspnea Status: Acute Priority: High Comment: Appears likely related to chest wall and back pain with anxiety. Has prior H/O asthma, but quiescent for >30 years. Pleural effusion surely added to breathlessness. (2) Pleural effusion Status: Acute Priority: High Comment: Etiology to be determined. Will need thoracentesis. Pleural based densities on the right may be related to the effusion. There is also a left basal pleural based density as well. Metastatic rib lesions appear to be present as well. I do not think these represent primary lung neoplasm, and would be unusual for metastatic lung disease. 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 PSA >3000, negative CEA, CA 19-9 pending would favor prostate as the primary site. - Date & Time Date: 03/03/17 Time: 15:18
--- NOTE | 2017-03-03 15:32 | CARD ---
APPROVED REPORT EXAM: Two-dimensional and M-mode echocardiogram with Doppler and color Doppler. Other Information Quality : GoodRhythm : NSR INDICATION CVA/TIA 2D DIMENSIONS IVSd1.36 (0.7-1.1cm)LVDd4.30 (3.9-5.9cm) LVOT Diameter1.60 (1.8-2.4cm)PWd1.00 (0.7-1.1cm) IVSs1.75 (0.8-1.2cm)LVDs3.02 (2.5-4.0cm) FS (%) 29.7 %PWs1.33 (0.8-1.2cm) M-Mode DIMENSIONS Left Atrium (MM)2.83 (2.5-4.0cm)IVSd1.04 (0.7-1.1cm) Aortic Root2.93 (2.2-3.7cm)LVDd5.12 (4.0-5.6cm) Aortic Cusp Exc.2.08 (1.5-2.0cm)PWd0.93 (0.7-1.1cm) IVSs1.57 cmFS (%) 38 % LVDs3.20 (2.0-3.8cm)PWs1.79 cm Mitral Valve MV E Knwkrzty42.1cm/sMV DECEL [id number] A Qiqxnirc15.5cm/s MV DIX43sfO/A ratio0.9MVA (PHT)3.74cm2 TDI Lateral E' Peak V13.77cm/sMedial E' Peak V11.33cm/sE/Lateral E'5.2 E/Medial E'6.3 Pulmonary Valve PV Peak Seahgjqe437.7cm/s Tricuspid Valve TR Peak Xxrebiko022dk/sRAP [id number] Peak Gr.22mmHg [id number] LEFT VENTRICLE The left ventricle is normal size. There is normal left ventricular wall thickness. The left ventricular function is normal. The left ventricular ejection fraction is within the normal range. The Ejection Fraction is 55-60%. There is normal LV segmental wall motion. The left ventricular diastolic function is normal. No left ventricle thrombus noted on this study. RIGHT VENTRICLE The right ventricle is normal size. There is normal right ventricular wall thickness. The right ventricular systolic function is normal. ATRIA The left atrium size is normal. The right atrium size is normal. The interatrial septum is intact with no evidence for an atrial septal defect. AORTIC VALVE The aortic valve is normal in structure. No aortic regurgitation is present. There is no aortic valvular stenosis. MITRAL VALVE The mitral valve is normal in structure. There is no evidence of mitral valve prolapse. There is no mitral valve stenosis. There is no mitral valve regurgitation noted. TRICUSPID VALVE The tricuspid valve is normal in structure. There is mild tricuspid regurgitation. There is no tricuspid valve stenosis. PULMONIC VALVE The pulmonary valve is normal in structure. There is no pulmonic valvular regurgitation. There is no pulmonic valvular stenosis. GREAT VESSELS The aortic root is normal in size. The IVC is normal in size and collapses >50% with inspiration. PERICARDIAL EFFUSION The pericardium appears normal. <Conclusion> The left ventricle is normal size. The left ventricular function is normal. The left ventricular ejection fraction is within the normal range. The Ejection Fraction is 55-60%. There is mild tricuspid regurgitation.
--- NOTE | 2017-03-03 15:48 | NM ---
COMPARISON: Chest CT with contrast 03/02/2017. TECHNIQUE: Forty mCi technetium 99-m DTPA aerosol. 5.0 mCI technetium 99-m MAA administered intravenously. FINDINGS: VENTILATION COMPONENT: There is some central deposition inhaled agent which may indicate an element of COPD though this is not dramatic. Occasional, infrequent small sub segmental and nonsegmental matched defects are identified at the bilateral lower lobes. There are no definite perfusion mismatches however. PERFUSION COMPONENT: Occasional, infrequent small sub segmental and nonsegmental perfusion defects are appreciated at the lower lobe bilaterally. IMPRESSION: Lowprobability ventilation perfusion scan for pulmonary embolism. Findings discussed with Carli Bhakta and Andrew 03/03/2017.
[2017-03-03] MEDS ORDERED: Albuterol 0.083% Inhal Sol (2.5 mg/3 mL) UD INH PRN (15:57)
[2017-03-03] MEDS: Enoxaparin 40 mg Syringe SC SCH (16:54)
--- NOTE | 2017-03-03 18:23 | CP.PCM.HP ---
History of Present Illness - History of Present Illness History of Present Illness: 61 yo with hx of Prostate Ca with Mets? HTN Cholest Prediabetes presented to ER with complaints of SOB and upper extremity numbness LBP and GI sx Present on Admission - Present on Admission Any Indicators Present on Admission: No Past Patient History - Infectious Disease Hx of Infectious Diseases: None - Past Medical History & Family History Past Medical History?: Yes - Past Social History Smoking Status: Former Smoker (former 2PPD smoker who stopped 25 years ago.) Chewing Tobacco Use: No Cigar Use: No Alcohol: None (former heavy alcohol intake. none for 35 years.) Drugs: Denies - CARDIAC Hx Hypertension: Yes - PULMONARY Hx Asthma: Yes - NEUROLOGICAL Hx Neurological Disorder: No - HEENT Hx Glaucoma: Yes - RENAL Hx Chronic Kidney Disease: No - ENDOCRINE/METABOLIC Hx Endocrine Disorders: No - HEMATOLOGICAL/ONCOLOGICAL Hx Blood Disorders: No - INTEGUMENTARY Hx Dermatological Problems: No - MUSCULOSKELETAL/RHEUMATOLOGICAL Hx Degenerative Joint Disease: Yes (both hips) Hx Falls: Yes Hx Fractures: Yes - GASTROINTESTINAL Hx Gastrointestinal Disorders: No - GENITOURINARY/GYNECOLOGICAL Hx Genitourinary Disorders: No - PSYCHIATRIC Hx Substance Use: Yes (alcohol) - SURGICAL HISTORY Hx Eye Surgery: Yes Hx Joint Replacement: Yes Hx Orthopedic Surgery: Yes Other/Comment: Patient had left hip replacement 2010, right hip replacement 2013 -- was in subacute rehab for 2 weeks post surg in 2013 - ANESTHESIA Hx Anesthesia: Yes Hx Anesthesia Reactions: No Meds Allergies/Adverse Reactions: Allergies Allergy/AdvReac Type Severity Reaction Status Date / Time No Known Allergies Allergy Verified 03/02/17 12:50 Physical Exam - Respiratory Exam Respiratory Exam: NORMAL BREATHING PATTERN - Cardiovascular Exam Cardiovascular Exam: REGULAR RHYTHM - GI/Abdominal Exam GI & Abdominal Exam: Normal Bowel Sounds Results - Vital Signs Recent Vital Signs: Last Vital Signs Temp 97.3 F L 03/03/17 15:49 Pulse 85 03/03/17 15:49 Resp 20 03/03/17 15:49 BP 113/62 03/03/17 15:49 Pulse Ox 98 03/03/17 15:49 - Labs Result Diagrams: 03/02/17 13:40 03/02/17 15:10 Labs: Laboratory Results - last 24 hr 03/02/17 03/02/17 03/02/17 18:44 18:44 20:47 POC Glucose (mg/dL) Serum Osmolality Iron 215 H TIBC 305 % Saturation 70 H Transferrin 260.14 Ferritin 711.0 H Triglycerides Cholesterol LDL Cholesterol Direct HDL Cholesterol Alpha Fetoprotein Carcinoembryonic Ag Prostate Specific Ag TSH 3rd Generation 03/03/17 03/03/17 03/03/17 05:26 09:50 10:43 POC Glucose (mg/dL) 89 Serum Osmolality Iron TIBC % Saturation Transferrin Ferritin Triglycerides 108 Cholesterol 202 H LDL Cholesterol Direct 113 HDL Cholesterol 62 Alpha Fetoprotein Carcinoembryonic Ag Prostate Specific Ag 3110 H TSH 3rd Generation 03/03/17 03/03/17 03/03/17 11:45 11:55 13:40 POC Glucose (mg/dL) Serum Osmolality 286 Iron TIBC % Saturation Transferrin Ferritin Triglycerides Cholesterol LDL Cholesterol Direct HDL Cholesterol Alpha Fetoprotein 2.1 Carcinoembryonic Ag 2.2 Prostate Specific Ag TSH 3rd Generation 1.79 03/03/17 03/03/17 13:43 16:02 POC Glucose (mg/dL) 101 95 Serum Osmolality Iron TIBC % Saturation Transferrin Ferritin Triglycerides Cholesterol LDL Cholesterol Direct HDL Cholesterol Alpha Fetoprotein Carcinoembryonic Ag Prostate Specific Ag TSH 3rd Generation Assessment & Plan - Assessment and Plan (Free Text) Assessment: SOB and back pain Prostate Ca with Mets? PE ?? Oncology Pulmonary Acute Cerebellar infarct Neurology HTN Cholest Prediabetes cont meds Metabolic abnormalities Nephrology - Date & Time Date: 03/03/17 Time: 22:22
--- NOTE | 2017-03-03 19:51 | CP.PCM.CON ---
History of Present Illness - History of Present Illness History of Present Illness: Mr. Deshpande is a 61-year-old man with a past medical history of blindness of the left eye, HTN, HLD, who presented to the ED with shortness of breath, back pain , light-headedness and numbness of the left hand. Imaging demonstrated bony mets throughout the spine and lungs. MRI of the brain showed a left cerebellar acute ischemic stroke. He is currently in NAD, and complains of back pain, but is otherwise in good spirits. Review of Systems - Constitutional Constitutional: Anorexia, Fever, Weight Loss - EENT Eyes: Blind Spots Nose/Mouth/Throat: absent: As Per HPI, Epistaxis, Nasal Congestion, Nasal Discharge, Nasal Obstruction, Nasal Trauma, Nose Pain, Post Nasal Drip, Sinus Pain, Sinus Pressure, Bleeding Gums, Change in Voice, Dental Pain, Dry Mouth, Dysphagia, Halitosis, Hoarsness, Lip Swelling, Mouth Lesions, Mouth Pain, Odynophagia, Sore Throat, Throat Swelling, Tongue Swelling, Facial Pain, Neck Pain, Neck Mass, Other - Cardiovascular Cardiovascular: Chest Pain with Activity, Diaphoresis, Lightheadedness - Respiratory Respiratory: As Per HPI - Gastrointestinal Gastrointestinal: Cramping - Genitourinary Genitourinary: absent: As Per HPI, Change in Urinary Stream, Difficulty Urinating, Dysuria, Flank Pain, Hematuria, Pyuria, Nocturia, Urinary Incontinence, Urinary Frequency, Urinary Hesitance, Urinary Urgency, Voiding Freq/Small Amts, Freq UTI, Hx Renal/Bladder Calculi, Hx /Renal Surgery, Bladder Distension, Other - Musculoskeletal Musculoskeletal: As Per HPI - Integumentary Integumentary: absent: As Per HPI, Acne, Alopecia, Bleeding Lesions, Change in Hair, Change in Nails, Change in Pigmentation, Changing Lesions, Dry Skin, Erythema, Furuncle, Hirsutism, Lesions, New Lesions, Non-Healing Lesions, Photosensitivity, Pruritus, Rash, Skin Pain, Skin Ulcer, Sores, Striae, Swelling , Unusual Bruising, Wounds, Jaundice, Other - Neurological Neurological: As Per HPI - Psychiatric Psychiatric: absent: As Per HPI, Abnormal Sleep Pattern, Anhedonia, Anxiety, Auditory Hallucinations, Behavioral Changes, Change in Appetite, Change in Libido, Confusion, Depression, Difficulty Concentrating, Hallucinations, Homicidal Ideation, Hopelessness, Irritability, Memory Loss, Mood Swings, Panic Attacks, Paranoia, Suicidal Ideation, Visual Hallucinations, Tactile Hallucinations, Other - Endocrine Endocrine: absent: As Per HPI, Change in Body Appearance, Change in Libido, Cold Intolorance, Deepening of Voice, Excessive Sweating, Fatigue, Flushing, Heat Intolorance, Increase in Ring/Shoe/Hat Size, Palpitations, Polydipsia, Polyphagia, Polyuria, Other - Hematologic/Lymphatic Hematologic: absent: As Per HPI, Easy Bleeding, Easy Bruising, Lymphadenopathy, Other Past Patient History - Infectious Disease Hx of Infectious Diseases: None - Past Medical History & Family History Past Medical History?: Yes - Past Social History Smoking Status: Former Smoker - CARDIAC Hx Hypertension: Yes - PULMONARY Hx Asthma: Yes - NEUROLOGICAL Hx Neurological Disorder: No - HEENT Hx Glaucoma: Yes - RENAL Hx Chronic Kidney Disease: No - ENDOCRINE/METABOLIC Hx Endocrine Disorders: No - HEMATOLOGICAL/ONCOLOGICAL Hx Blood Disorders: No - INTEGUMENTARY Hx Dermatological Problems: No - MUSCULOSKELETAL/RHEUMATOLOGICAL Hx Falls: Yes - GASTROINTESTINAL Hx Gastrointestinal Disorders: No - GENITOURINARY/GYNECOLOGICAL Hx Genitourinary Disorders: No - PSYCHIATRIC Hx Substance Use: No - SURGICAL HISTORY Other/Comment: Patient had left hip replacement 2010, right hip replacement 2013 -- was in subacute rehab for 2 weeks post surg in 2013 - ANESTHESIA Hx Anesthesia: Yes Hx Anesthesia Reactions: No Meds Allergies/Adverse Reactions: Allergies Allergy/AdvReac Type Severity Reaction Status Date / Time No Known Allergies Allergy Verified 03/02/17 12:50 - Medications Medications: Current Medications Albuterol Sulfate (Albuterol 0.083% Inhal Ana (2.5 Mg/3 Ml) Ud) 2.5 mg INH RQ4 PRN PRN Reason: Shortness of Breath Aspirin (Aspirin Chewable) 81 mg PO DAILY [facility] Enoxaparin Sodium (Lovenox) 40 mg SC DAILY [facility] PRN Reason: Protocol Last Admin: 03/03/17 16:54 Dose: 40 mg Home Med (Bimatoprost [Lumigan]) 1 drop TOP DAILY [facility] Home Med (Difluprednate [Durezol]) 1 drop TOP QOTHERDAY [facility] Sodium Chloride (Sodium Chloride 0.45%) 1,000 mls @ 75 mls/hr IV .[id number] [facility] Stop: 03/04/17 00:32 Last Admin: 03/03/17 00:48 Dose: 75 mls/hr Morphine Sulfate (Morphine) 4 mg IVP Q6 PRN PRN Reason: Pain, severe (8-10) Last Admin: 03/03/17 18:38 Dose: 4 mg Physical Exam - Constitutional Appears: Cachectic - Head Exam Head Exam: ATRAUMATIC, NORMAL INSPECTION, NORMOCEPHALIC - Eye Exam Pupil Exam: Unequal - ENT Exam ENT Exam: Mucous Membranes Moist, Normal Exam - Neck Exam Neck exam: Positive for: Normal Inspection - Respiratory Exam Respiratory Exam: Prolonged Expiratory Phase, Wheezes - Cardiovascular Exam Cardiovascular Exam: REGULAR RHYTHM, +S1, +S2 - GI/Abdominal Exam GI & Abdominal Exam: Normal Bowel Sounds, Soft. absent: Tenderness - Rectal Exam Rectal Exam: Deferred - Extremities Exam Extremities exam: Positive for: normal inspection - Back Exam Back exam: NORMAL INSPECTION - Neurological Exam Neurological exam: Alert, CN II-XII Intact, Normal Gait, Oriented x3, Reflexes Normal - Psychiatric Exam Psychiatric exam: Normal Affect, Normal Mood - Skin Skin Exam: Dry, Intact, Normal Color, Warm Results - Vital Signs Recent Vital Signs: Last Vital Signs Temp 97.3 F L 03/03/17 15:49 Pulse 85 03/03/17 15:49 Resp 20 03/03/17 15:49 BP 113/62 03/03/17 15:49 Pulse Ox 98 03/03/17 15:49 - Labs Result Diagrams: 03/02/17 13:40 03/02/17 15:10 Labs: Laboratory Results - last 24 hr 03/02/17 03/02/17 03/03/17 18:44 20:47 05:26 POC Glucose (mg/dL) 89 Serum Osmolality Iron 215 H TIBC 305 % Saturation 70 H Transferrin 260.14 Triglycerides Cholesterol LDL Cholesterol Direct HDL Cholesterol Alpha Fetoprotein Carcinoembryonic Ag Prostate Specific Ag TSH 3rd Generation 03/03/17 03/03/17 03/03/17 09:50 10:43 11:45 POC Glucose (mg/dL) Serum Osmolality Iron TIBC % Saturation Transferrin Triglycerides 108 Cholesterol 202 H LDL Cholesterol Direct 113 HDL Cholesterol 62 Alpha Fetoprotein 2.1 Carcinoembryonic Ag Prostate Specific Ag 3110 H TSH 3rd Generation 03/03/17 03/03/17 03/03/17 11:55 13:40 13:43 POC Glucose (mg/dL) 101 Serum Osmolality 286 Iron TIBC % Saturation Transferrin Triglycerides Cholesterol LDL Cholesterol Direct HDL Cholesterol Alpha Fetoprotein Carcinoembryonic Ag 2.2 Prostate Specific Ag TSH 3rd Generation 1.79 03/03/17 16:02 POC Glucose (mg/dL) 95 Serum Osmolality Iron TIBC % Saturation Transferrin Triglycerides Cholesterol LDL Cholesterol Direct HDL Cholesterol Alpha Fetoprotein Carcinoembryonic Ag Prostate Specific Ag TSH 3rd Generation Assessment & Plan (1) Ischemic stroke Assessment and Plan: Could be due to hypercoagulable state and dehydration. I recommend the followin. Telemetry 2. Echocardiogram with bubble study 3. MRA of the head/neck 4. Aspirin 81 mg daily 5. Lipid panel, HbA1c, B12, folate, TSH, homcysteine, hypercoagulable work-up 6. Statin to maintain LDL< 70 7. PT/OT eval 8. DVT Px 9. Case management consult Thank you. Status: Acute Priority: High
[2017-03-03 20:39] LABS: HDL CHOLESTEROL 63 MG/DL (30-70)
[2017-03-03 20:50] LABS: LDL CHOLESTEROL 107 mg/dL (0-129)
--- NOTE | 2017-03-04 04:36 | CON ---
DATE: RENAL CONSULTATION LOCATION: The patient is located in room 407, bed 1. REQUESTING PHYSICIAN: Juan Estrada MD REASON FOR EVALUATION: Hyponatremia, for further evaluation. HISTORY OF PRESENT ILLNESS: Mr. Deshpande is an about 61 years old elderly -Senegalese male with a past medical significant for hypertension, hyperlipidemia, prediabetes, and bilateral hip replacement, and also fracture of the three toes on the right side and left inguinal hernia repair, ex-smoker, who was admitted with a chief complaint of lower back pain, rib pains and also the shortness of breath and insomnia for the last two days. 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 Patient is not in acute distress. Denies any headache at this time. Patient does complain of some dizziness. Denies any chest pain, denies any palpitation, denies any nausea, vomiting, or diarrhea. Patient does complain of decreased p.o. intake. No edema of the legs. No skin rash. No urinary symptoms. PAST MEDICAL HISTORY: Significant for hypertension, hyperlipidemia and prediabetes. PAST SURGICAL HISTORY: Bilateral hip replacement and also fracture of the right three toes. Surgery to the eyes for glaucoma. The left eye is blind, right eye with a poor vision and left inguinal hernia repair. SOCIAL HISTORY: Patient is an ex-smoker and also ex-alcohol abuse and no drug abuse. PERSONAL HISTORY: He has a common-law for 20 years. He has one stepdaughter. FAMILY HISTORY: Both parents diseased. Father when he was about 19 and mother when he was 15. He has one brother and one sister. CURRENT MEDICATIONS: Include as follows; albuterol inhaler 2.5 mg q. 4 hours, aspirin 81 mg daily, Lovenox 40 mg subcutaneous daily, morphine 4 mg IV q. 6 hours p.r.n., and IV fluids half normal saline at 75 mL per hour. REVIEW OF SYSTEMS: Significant for dizziness and also weakness, chest pains, rib pains, lower back pain, and decreased p.o. intake. All other review of systems are reviewed and are negative. PHYSICAL EXAMINATION: GENERAL: Mr. Deshpande is a 61-year-old elderly male, ill-looking appearance, not in distress. VITAL SIGNS: Blood pressure 116/69, pulse 70, respirations 18, temperature 98.1, saturation 95%. Height 6 feet 1 inch, weight is 175 pounds. BMI 23.1. HEENT: Pupils are normal and reactive to light and accommodation. Conjunctivae pink. Sclerae anicteric. Tongue is slightly dry. Trachea is midline. LUNGS: Symmetric on both sides. Bilateral breath sounds are present. Clear on auscultation. CARDIOVASCULAR SYSTEM: [place] at the fifth intercostal space, half-inch medial to midclavicular line. S1 and S2 audible. No murmur. No gallop. ABDOMEN: Normal in appearance. The patient has a scar in the left inguinal region from the previous hernia repair. Soft, tympanic. No guarding. No rigidity. No hepatosplenomegaly. No abdominal bruits. CENTRAL NERVOUS SYSTEM: The patient is alert, awake, and oriented x3. Nonfocal neuro examination. Cranial nerves II through XII grossly intact. Sensory and motor system is within normal limits. EXTREMITIES: No cyanosis. No clubbing. No edema. LABORATORY DATA: Include as follows: As of 03/02/2017, WBC 6.3, hemoglobin 8.8, hematocrit is 25, platelets 118, neutrophils 52, bands 2, lymphocytes 25, monos 12, eosinophils 4, and basophils 2. PT 13.1 and PTT 26.2. D-dimer is 4972. ABG: PH 7.67, pCO2 19, PO2 134, bicarb is 27.8, and saturation is 100%. Sodium is 130, potassium 4.1, chloride 93, CO2 21. BUN 99, creatinine 0.7, glucose 96, calcium is 10.4, troponin is 0.17, and proBNP is 765. Stool for occult blood is negative. Ferritin is 711, iron is 215, TIBC is 305, and saturations 70%. Other laboratory data, Accu-Chek is 89. Cholesterol is 202, triglycerides 108, LDL is 113, HDL 62. Alpha-fetoprotein is 2.1, carcinoembryonic antigen is 2.2 and CA 19-9 is pending. PSA is 3110. TSH is 1.79. In the other reports, lung scan as of 03/03/2017, impression; low probability ventilation perfusion scan for pulmonary embolism. Thoracic spine MRI as of 03/02/2017; diffuse metastatic changes seen throughout the thoracic spine including a posterior element with incidental involvement of the cervical spine also identified diffusely. No severe spinal stenosis results, though limited central stenosis appreciated at T9, and ventral nerve roots are also encroached at T11 and T7 levels due to deformities of the posterior henley of the vertebral bodies at these levels. No disc herniation throughout the examination. No definite acute fracture or spondylolisthesis identified, except the lumbar spine. Gross multifocal bony metastases seen throughout the visualized thoracic spine. Entire lumbar and visualized sacral spine as discussed above. Vertebral bodies are affected as well as the posterior elements diffusely. Iliac bones are also affected. No overt MR sign in the enhanced exam epidural or intrathecal metastasis. However, MRI with or without contrast is more sensitive for further evaluation of these anatomical sections. Degenerative central canal stenosis is moderate at L4-L5 and borderline at L3-L4. MRI of the brain as of 03/02/2017, a small focus of acute infarction in the left cerebellar hemisphere, multifocal subcortical and deep supratentorial white matter changes and confluent biparietal subcortical white matter changes are statistically more compatible with moderate chronic microangiopathic changes. Mild age-related global parenchymal volume loss, osseus metastases in the upper cervical spine and question of occipital calvarial metastases. CT of the head as of 03/02/2017; multifocal abnormality in biparietal subcortical white matter is nonspecific and statistically more compatible with moderate chronic microangiopathic changes; however, other differential considerations include age-indeterminate infarction, demyelinating disease. There is persistent clinical concern, and MRI of the brain without and with intravenous contrast would be helpful for further evaluation. CT of the chest as of 03/02/2017; suboptimal diagnostic quality for evaluation of the pulmonary embolism, allowing for this non-lodge central pulmonary embolism. A 5 mm and 7 mm nodules in the right upper and lower lobes respectively. These are nonspecific and could be inflammatory or neoplastic in etiology. A short-term interval followup is advised and moderate right and small left pleural effusion and diffuse lytic and blastic osseus metastases. ASSESSMENT: In summary, Mr. Deshpande is an about 61 years old elderly male with history of hypertension, hyperlipidemia, prediabetes, bilateral hip replacements, who was admitted with lower back pain, rib pains and lower abdomen and chest pain, shortness of breath, and decreased p.o. intake for few days, was found to have low serum sodium and slightly elevated calcium levels and diffuse bony metastases, now with elevated prostate specific antigen more than 3000. 1. Hyponatremia, most likely secondary intravascular volume depletion secondary to decreased p.o. intake, cannot rule out syndrome of inappropriate antidiuretic hormone, less likely, with prostrate cancer cannot be ruled out secondary to pain and syndrome of inappropriate antidiuretic hormone - secondary to metastatic bone disease. 2. High prostate specific antigen with bone metastases, most likely stage IV prostate cancer. 3. Hypertension. 4. Mild hypercalcemia, most likely secondary to intravascular volume depletion, doubt secondary to prostate cancer. PLAN: We will check serum cortisol level and TSH level, and follow up CA19-9 and follow up with Urology and also Hematology/Oncology for further management and for possible chemotherapy. May need a bone marrow biopsy or prostate biopsy. Change IV fluids to normal saline at 70 mL per hour. Case discussed with the patient's nurse in rounds. We will also check PTH intact level and PTH related peptide. Thank you for allowing me to participate in your patient's care. Fabiano Link MD
[2017-03-04 07:51] LABS: HEMOGLOBIN 7.9 g/dL (12.0-18.0); MEAN CELL VOLUME 94.4 fl (80.0-94.0); MEAN CORPUSCULAR HEMOGLOBIN 32.4 pg (27.0-31.0); MEAN CORPUSCULAR HGB CONC 34.4 g/dL (33.0-37.0); RBC 2.43 Mil/uL (4.40-5.90); RED CELL DISTRIBUTION WIDTH 18.5 % (11.5-14.5); WHITE BLOOD COUNT 3.2 K/uL (4.8-10.8)
[2017-03-04 08:00] LABS: ALB/GLOB RATIO 1.4 (1.0-2.1); ALBUMIN 3.8 g/dL (3.5-5.0); ALT/SGPT 46 U/L (21-72); AST/SGOT 43 U/L (17-59); BLOOD UREA NITROGEN 9 mg/dl (9-20); CALCIUM 9.4 mg/dL (8.4-10.2); GFR AFRICAN-AMERICAN > 60; GFR NON-AFRICAN AMERICAN > 60
[2017-03-04] MEDS: Enoxaparin 40 mg Syringe SC SCH (09:05)
[2017-03-04 09:36] LABS: TOTAL PSA >1420.0 ng/mL (< or = 4.0)
--- NOTE | 2017-03-04 14:09 | CP.PCM.PN ---
Subjective - Date & Time of Evaluation Date of Evaluation: 03/04/17 Time of Evaluation: 14:09 - Subjective Subjective: pt is seen and examined, follow up consult is dictated #[id number] Objective - Vital Signs/Intake and Output Vital Signs (last 24 hours): Temp Pulse Resp BP Pulse Ox 97.8 F 100 H 18 119/71 99 03/04/17 13:00 03/04/17 13:00 03/04/17 13:00 03/04/17 13:00 03/04/17 13:00 - Medications Medications: Current Medications Albuterol Sulfate (Albuterol 0.083% Inhal Ana (2.5 Mg/3 Ml) Ud) 2.5 mg INH RQ4 PRN PRN Reason: Shortness of Breath Aspirin (Aspirin Chewable) 81 mg PO DAILY [facility] Last Admin: 03/04/17 09:05 Dose: 81 mg Atorvastatin Calcium (Lipitor) 40 mg PO DAILY [facility] Last Admin: 03/04/17 09:05 Dose: 40 mg Enoxaparin Sodium (Lovenox) 40 mg SC DAILY [facility] PRN Reason: Protocol Last Admin: 03/04/17 09:05 Dose: 40 mg Home Med (Bimatoprost [Lumigan]) 1 drop TOP DAILY [facility] Home Med (Difluprednate [Durezol]) 1 drop TOP QOTHERDAY [facility] Morphine Sulfate (Morphine) 4 mg IVP Q6 PRN PRN Reason: Pain, severe (8-10) Last Admin: 03/03/17 18:38 Dose: 4 mg - Labs Labs: 03/04/17 06:30 03/04/17 06:30 PT 13.1 Seconds (9.8-13.1) 03/02/17 13:40 INR 1.2 (0.9-1.2) 03/02/17 13:40 APTT 26.2 Seconds (25.6-37.1) 03/02/17 13:40
--- NOTE | 2017-03-04 18:09 | CP.PCM.PN ---
Subjective - Date & Time of Evaluation Date of Evaluation: 03/04/17 Time of Evaluation: 22:22 - Subjective Subjective: Above notes appreciated D/W pharmacist regarding Eyedrops D/W who wants pt to go home Objective - Vital Signs/Intake and Output Vital Signs (last 24 hours): Temp Pulse Resp BP Pulse Ox 98.0 F 96 H 17 127/77 98 03/04/17 16:00 03/04/17 16:00 03/04/17 16:00 03/04/17 16:00 03/04/17 16:00 - Medications Medications: Current Medications Albuterol Sulfate (Albuterol 0.083% Inhal Ana (2.5 Mg/3 Ml) Ud) 2.5 mg INH RQ4 PRN PRN Reason: Shortness of Breath Aspirin (Aspirin Chewable) 81 mg PO DAILY [facility] Last Admin: 03/04/17 09:05 Dose: 81 mg Atorvastatin Calcium (Lipitor) 40 mg PO DAILY [facility] Last Admin: 03/04/17 09:05 Dose: 40 mg Enoxaparin Sodium (Lovenox) 40 mg SC DAILY [facility] PRN Reason: Protocol Last Admin: 03/04/17 09:05 Dose: 40 mg Home Med (Difluprednate [Durezol]) 1 drop TOP QOTHERDAY [facility] Latanoprost (Xalatan Opht) 1 drop OU HS [facility] Morphine Sulfate (Morphine) 4 mg IVP Q6 PRN PRN Reason: Pain, severe (8-10) Last Admin: 03/03/17 18:38 Dose: 4 mg - Labs Labs: 03/04/17 06:30 03/04/17 06:30 PT 13.1 Seconds (9.8-13.1) 03/02/17 13:40 INR 1.2 (0.9-1.2) 03/02/17 13:40 APTT 26.2 Seconds (25.6-37.1) 03/02/17 13:40 Assessment and Plan - Assessment and Plan (Free Text) Assessment: SOB and back pain Prostate Ca with Mets? PE - VQ scan low probability Oncology Pulmonary Anemia 2 to above? repeat labs in am Acute Cerebellar infarct Neurology ASA HTN Cholest Prediabetes cont meds Metabolic abnormalities Nephrology
--- NOTE | 2017-03-04 18:20 | PCM.EEG ---
Electroencephalogram Report - Electroencephalogram Report Procedure Date: 03/03/17 Interpretation: Indication: Near Syncope. Medications were reviewed. Technical : This is a digitally recorded electroencephalogram. The international 10-20 electrode placement system is used for scalp electrode placement. Eighteen channels of scalp EEG are recorded One channel was used for EOG. Another channel was used for for ECG. The data are stored digitally and reviewed in reformatted montages for optimal display. Background: 9 to 10 hertz alpha activity was seen. Maximal over the posterior head region. These activities are symmetric on both sides. They attenuated with eye opening. Small amount of beta activities are seen. Description: No focal slowing was seen. No seizure like activity was observed during this recording. Patient entered into periods of drowsiness and light sleep. No abnormality was seen. Impression: Normal EEG. No focal slowing no seizure like activity was observed. Correlation with clinical findings is needed.
--- NOTE | 2017-03-04 18:59 | CP.PCM.PN ---
Subjective - Date & Time of Evaluation Date of Evaluation: 03/04/17 Time of Evaluation: 16:00 - Subjective Subjective: Feeling better, less pain Had at length discussed with the patient and step daughter at bedside. Case discussed with Dr. Estrada Objective - Vital Signs/Intake and Output Vital Signs (last 24 hours): Temp Pulse Resp BP Pulse Ox 98.0 F 96 H 17 127/77 98 03/04/17 16:00 03/04/17 16:00 03/04/17 16:00 03/04/17 16:00 03/04/17 16:00 - Medications Medications: Current Medications Albuterol Sulfate (Albuterol 0.083% Inhal Ana (2.5 Mg/3 Ml) Ud) 2.5 mg INH RQ4 PRN PRN Reason: Shortness of Breath Aspirin (Aspirin Chewable) 81 mg PO DAILY [facility] Last Admin: 03/04/17 09:05 Dose: 81 mg Atorvastatin Calcium (Lipitor) 40 mg PO DAILY [facility] Last Admin: 03/04/17 09:05 Dose: 40 mg Enoxaparin Sodium (Lovenox) 40 mg SC DAILY [facility] PRN Reason: Protocol Last Admin: 03/04/17 09:05 Dose: 40 mg Home Med (Difluprednate [Durezol]) 1 drop TOP QOTHERDAY [facility] Latanoprost (Xalatan Opht) 1 drop OU HS [facility] Morphine Sulfate (Morphine) 4 mg IVP Q6 PRN PRN Reason: Pain, severe (8-10) Last Admin: 03/03/17 18:38 Dose: 4 mg - Labs Labs: 03/04/17 06:30 03/04/17 06:30 PT 13.1 Seconds (9.8-13.1) 03/02/17 13:40 INR 1.2 (0.9-1.2) 03/02/17 13:40 APTT 26.2 Seconds (25.6-37.1) 03/02/17 13:40 - Head Exam Head Exam: ATRAUMATIC - Eye Exam Eye Exam: Normal appearance - ENT Exam ENT Exam: Mucous Membranes Dry - Respiratory Exam Respiratory Exam: Decreased Breath Sounds - Cardiovascular Exam Cardiovascular Exam: +S1, +S2 - GI/Abdominal Exam GI & Abdominal Exam: Normal Bowel Sounds - Extremities Exam Extremities Exam: Normal Inspection - Neurological Exam Neurological Exam: Oriented x3 - Psychiatric Exam Psychiatric exam: Normal Affect, Normal Mood - Skin Skin Exam: Warm Assessment and Plan (1) Bone lesion Assessment & Plan: elevated PSA; likely metastatic prostate cancer will need bone lesion biopsy by IR to confirm; okay to do as an outpatient if patient wants to go home Status: Acute (2) Pancytopenia Assessment & Plan: likely related to bone metastasis anemia of chronic disease will type and screen tomorrow morning; if hgb remains < 8, will transfuse 1 Unit PRBC Status: Acute
[2017-03-04] MEDS: PrednisoLONE 1% OPTH SUSP OD SCH (20:37)
[2017-03-04] MEDS: Latanoprost 0.005% Opht SOUTION OU SCH (22:24)
--- NOTE | 2017-03-05 04:23 | PN ---
DATE: FOLLOWUP RENAL CONSULTATION LOCATION: The patient is located in room 407, bed 1. REQUESTED BY: Juan Estrada MD. REASON FOR FOLLOWUP: Hyponatremia. SUBJECTIVE: Mr. Deshpande is a 61-year-old -[place] male with a history of hypertension, prediabetes, glaucoma with left eye blind with poor vision in the right eye, who was admitted with back pain - upper and lower, and also chest and rib pains. Patient was found to have a low serum sodium and decreased p.o. intake and the patient was stared on IV fluids. Patient is feeling better today, not in distress. No headache. No nausea or vomiting. No fever. No cough. PHYSICAL EXAMINATION: GENERAL: Mr. Deshpande is a 61-year-old male, moderately built, moderately nourished, not in distress. VITAL SIGNS: As follows. Blood pressure 129/80, pulse 90, respirations 18, temperature 98.1, saturation 98%. Height 6 feet 1 inches and weight is 175 pounds. HEENT: Pupils are normal and reactive to light and accommodation. Conjunctivae pink. Left eye is blind with a poor vision on the right side. Tongue is moist. Trachea is midline. LUNGS: Symmetric on both sides. Bilateral breath sounds present. No crackles. CARDIOVASCULAR SYSTEM: [place] at the fifth intercostal space, half-inch medial to midclavicular line. S1, S2 audible. No murmur. No gallop. ABDOMEN: Normal in appearance, soft, tympanic. No guarding. No rigidity. No hepatosplenomegaly. CENTRAL NERVOUS SYSTEM: Patient is alert, awake, oriented x3. Nonfocal neuro examination. Cranial nerves II through XII grossly intact. Sensory and motor system is within normal limits. EXTREMITIES: No cyanosis, no clubbing, no edema. CURRENT MEDICATIONS: Include as follows: Albuterol inhaler, aspirin, atorvastatin, Lovenox, morphine sulfate, prednisone and Xalatan eye drops. LABORATORY DATA: Other laboratory data includes as follows. As of 03/04/2017, WBC 3.2, hemoglobin 7.9, hematocrit is 23 and platelets 89. Sodium 139, potassium 4.4, chloride 104, CO2 of 27, BUN 9, creatinine 0.8, glucose 77, calcium 9.4, total bili 0.3. AST 43, ALT 46, alkaline phosphatase 326, total protein 6.4, albumin is 3.8. Serum protein electrophoresis and immunofixation is pending. Now, alpha fetoprotein is 2.1. CA is 2.2 and CA-19-9 is 27.9, which is normal. PSA is 3110 and percentage of free PSA is . ASSESSMENT AND PLAN: In summary, Mr. Deshpande is a 61-year-old male with a history of hypertension, glaucoma with anemia and low serum sodium on admission, was treated with IV fluids. Now sodium is 139. 1. Hyponatremia most likely secondary to intravascular volume depletion secondary to oral intake. 2. High prostate specific antigen with multiple bony lesions, rule out metastatic prostate CA stage 4. 3. Pancytopenia most likely secondary to prostate cancer, rule out bone marrow involvement also. 4. Hypertension. Blood pressure is stable. Thyroid-stimulating hormone level was normal and serum cortisol was also 13.2, which is normal. We will follow up as needed. The renal function is stable and serum sodium is stable at this time. Follow up with Hematology/Oncology and consider Urology evaluation for possible prostate biopsy. Thank you for allowing me to participate in your patient's care. Fabiano Link MD
[2017-03-05 07:18] LABS: BASO % 1.3 % (0.0-2.0); EOS # 0.2 K/uL (0.0-0.7); EOS % 6.7 % (0.0-4.0); LYMPH % 27.7 % (20.0-40.0); MEAN CELL VOLUME 95.1 fl (80.0-94.0); MEAN CORPUSCULAR HEMOGLOBIN 32.7 pg (27.0-31.0); MEAN CORPUSCULAR HGB CONC 34.3 g/dL (33.0-37.0); MEAN PLATELET VOLUME 8.1 fl (7.2-11.7); MONO # 0.4 K/uL (0.0-0.8); MONO % 11.3 % (0.0-10.0); NEUT # 1.9 K/uL (1.8-7.0); NRBC % 3.7 % (0.0-0.0); RBC 2.45 Mil/uL (4.40-5.90); WHITE BLOOD COUNT 3.6 K/uL (4.8-10.8)
[2017-03-05] MEDS: Enoxaparin 40 mg Syringe SC SCH (08:57)
[2017-03-05] MEDS: PrednisoLONE 1% OPTH SUSP OD SCH (08:58)
--- NOTE | 2017-03-05 20:29 | CP.PCM.PN ---
Subjective - Date & Time of Evaluation Date of Evaluation: 03/05/17 Time of Evaluation: 17:00 - Subjective Subjective: No complaints, at bedside Pt and requesting biopsy be done as inpatient; will order IR guided bone lesion biopsy Given hypoglycemia per nursing, will start D5 hydration as pt will be NPO after midnight for biopsy Objective - Vital Signs/Intake and Output Vital Signs (last 24 hours): Temp Pulse Resp BP Pulse Ox 97.4 F L 93 H 20 131/93 H 99 03/05/17 19:58 03/05/17 19:58 03/05/17 19:58 03/05/17 19:58 03/05/17 19:58 - Medications Medications: Current Medications Albuterol Sulfate (Albuterol 0.083% Inhal Ana (2.5 Mg/3 Ml) Ud) 2.5 mg INH RQ4 PRN PRN Reason: Shortness of Breath Aspirin (Aspirin Chewable) 81 mg PO DAILY [facility] Last Admin: 03/05/17 08:58 Dose: 81 mg Atorvastatin Calcium (Lipitor) 40 mg PO DAILY [facility] Last Admin: 03/05/17 08:58 Dose: 40 mg Docusate Sodium (Colace) 100 mg PO BID [facility] Last Admin: 03/05/17 16:01 Dose: 100 mg Enoxaparin Sodium (Lovenox) 40 mg SC DAILY [facility] PRN Reason: Protocol Last Admin: 03/05/17 08:57 Dose: 40 mg Dextrose/Sodium Chloride (Dextrose 5%/0.45% Ns 1000 Ml) 1,000 mls @ 80 mls/hr IV .[id number] [facility] Stop: 03/06/17 18:27 Latanoprost (Xalatan Opht) 1 drop OU HS [facility] Last Admin: 03/04/17 22:24 Dose: 1 drop Prednisolone Acetate (Pred Forte 1% Opht Susp) 1 drop OD QOTHERDAY [facility] Last Admin: 03/05/17 08:58 Dose: 1 drop - Labs Labs: 03/05/17 06:30 03/04/17 06:30 PT 13.1 Seconds (9.8-13.1) 03/02/17 13:40 INR 1.2 (0.9-1.2) 03/02/17 13:40 APTT 26.2 Seconds (25.6-37.1) 03/02/17 13:40 - Constitutional Appears: Cachectic - Head Exam Head Exam: ATRAUMATIC - Eye Exam Eye Exam: Normal appearance - ENT Exam ENT Exam: Mucous Membranes Dry - Respiratory Exam Respiratory Exam: NORMAL BREATHING PATTERN - Cardiovascular Exam Cardiovascular Exam: +S1, +S2 - GI/Abdominal Exam GI & Abdominal Exam: Normal Bowel Sounds - Extremities Exam Extremities Exam: Normal Inspection Assessment and Plan (1) Bone lesion Assessment & Plan: elevated PSA, likely prostate cancer with bone mets for IR bone lesion biopsy Status: Acute (2) Pancytopenia Assessment & Plan: likely related to bone mets Status: Acute
--- NOTE | 2017-03-05 21:50 | CP.PCM.PN ---
Subjective - Date & Time of Evaluation Date of Evaluation: 03/05/17 Time of Evaluation: 22:22 - Subjective Subjective: Above noted Dec pain Objective - Vital Signs/Intake and Output Vital Signs (last 24 hours): Temp Pulse Resp BP Pulse Ox 97.4 F L 93 H 20 131/93 H 99 03/05/17 19:58 03/05/17 19:58 03/05/17 19:58 03/05/17 19:58 03/05/17 19:58 - Medications Medications: Current Medications Albuterol Sulfate (Albuterol 0.083% Inhal Ana (2.5 Mg/3 Ml) Ud) 2.5 mg INH RQ4 PRN PRN Reason: Shortness of Breath Aspirin (Aspirin Chewable) 81 mg PO DAILY [facility] Last Admin: 03/05/17 08:58 Dose: 81 mg Atorvastatin Calcium (Lipitor) 40 mg PO DAILY [facility] Last Admin: 03/05/17 08:58 Dose: 40 mg Docusate Sodium (Colace) 100 mg PO BID [facility] Last Admin: 03/05/17 16:01 Dose: 100 mg Enoxaparin Sodium (Lovenox) 40 mg SC DAILY [facility] PRN Reason: Protocol Last Admin: 03/05/17 08:57 Dose: 40 mg Dextrose/Sodium Chloride (Dextrose 5%/0.45% Ns 1000 Ml) 1,000 mls @ 80 mls/hr IV .[id number] [facility] Stop: 03/06/17 18:27 Latanoprost (Xalatan Opht) 1 drop OU HS [facility] Last Admin: 03/04/17 22:24 Dose: 1 drop Prednisolone Acetate (Pred Forte 1% Opht Susp) 1 drop OD QOTHERDAY [facility] Last Admin: 03/05/17 08:58 Dose: 1 drop - Labs Labs: 03/05/17 06:30 03/04/17 06:30 PT 13.1 Seconds (9.8-13.1) 03/02/17 13:40 INR 1.2 (0.9-1.2) 03/02/17 13:40 APTT 26.2 Seconds (25.6-37.1) 03/02/17 13:40 - Respiratory Exam Respiratory Exam: NORMAL BREATHING PATTERN - Cardiovascular Exam Cardiovascular Exam: REGULAR RHYTHM - GI/Abdominal Exam GI & Abdominal Exam: Normal Bowel Sounds Assessment and Plan - Assessment and Plan (Free Text) Assessment: SOB and back pain Prostate Ca with Mets? PE - VQ scan low probability Oncology Pulmonary IR for BX Pancytopenia 2 to above? Hbg stable Acute Cerebellar infarct Neurology ASA Lipitor W/U in process HTN Cholest Prediabetes cont meds Metabolic abnormalities Nephrology
[2017-03-05] MEDS: Dextrose 5%/0.45% NS 1,000 ML IV SCH (21:53)
[2017-03-05] MEDS: Latanoprost 0.005% Opht SOUTION OU SCH (22:01)
[2017-03-05 22:57] LABS: FOLATE 10.8 ng/mL
[2017-03-06 05:27] LABS: BASO % 1.4 % (0.0-2.0); EOS # 0.2 K/uL (0.0-0.7); EOS % 7.3 % (0.0-4.0); HEMOGLOBIN 7.3 g/dL (12.0-18.0); LYMPH # 0.8 K/uL (1.0-4.3); LYMPH % 24.3 % (20.0-40.0); MEAN CORPUSCULAR HEMOGLOBIN 32.1 pg (27.0-31.0); MEAN CORPUSCULAR HGB CONC 33.8 g/dL (33.0-37.0); MEAN PLATELET VOLUME 7.8 fl (7.2-11.7); MONO # 0.4 K/uL (0.0-0.8); MONO % 11.9 % (0.0-10.0); NEUT # 1.8 K/uL (1.8-7.0); NEUT % 55.1 % (50.0-75.0); NRBC % 4.8 % (0.0-0.0); RBC 2.27 Mil/uL (4.40-5.90); RED CELL DISTRIBUTION WIDTH 18.3 % (11.5-14.5); WHITE BLOOD COUNT 3.3 K/uL (4.8-10.8)
[2017-03-06 05:31] LABS: INR 1.2 (0.9-1.2); PARTIAL THROMBOPLASTIN TIME 26.4 Seconds (25.6-37.1); PROTHROMBIN TIME 12.9 Seconds (9.8-13.1)
[2017-03-06 06:11] LABS: PLATELET COUNT 78 K/uL (130-400)
[2017-03-06 06:42] LABS: BASOPHIL 2 % (0-2); EOSINOPHIL 5 % (0-7); LYMPHOCYTE 29 % (20-50); METAMYELOCYTE 6 % (0-0); MONOCYTE 9 % (0-10); NEUTROPHIL 49 % (42-75); NUCLEATED RED BLOOD CELL 4 % (0-0); PLATELET ESTIMATE DECREASED (NORMAL); TOTAL CELLS COUNTED 100
[2017-03-06 06:44] LABS: ANISOCYTOSIS SLIGHT; OVALOCYTES SLIGHT; POIKILOCYTOSIS SLIGHT; TEARDROP CELLS SLIGHT
--- NOTE | 2017-03-06 08:24 | CP.PCM.PN ---
Subjective - Date & Time of Evaluation Date of Evaluation: 03/06/17 Time of Evaluation: 08:24 - Subjective Subjective: Still complains of back pain. Scheduled for bone biosy by IR. No difficulty with SOB or dyspnea. No cough. Will sign off at this time. Please call any time if needed. Objective - Vital Signs/Intake and Output Vital Signs (last 24 hours): Temp Pulse Resp BP Pulse Ox 98.0 F 83 18 135/81 97 03/06/17 08:00 03/06/17 08:00 03/06/17 08:00 03/06/17 08:00 03/06/17 08:00 - Medications Medications: Current Medications Albuterol Sulfate (Albuterol 0.083% Inhal Ana (2.5 Mg/3 Ml) Ud) 2.5 mg INH RQ4 PRN PRN Reason: Shortness of Breath Aspirin (Aspirin Chewable) 81 mg PO DAILY [facility] Last Admin: 03/05/17 08:58 Dose: 81 mg Atorvastatin Calcium (Lipitor) 40 mg PO DAILY [facility] Last Admin: 03/05/17 08:58 Dose: 40 mg Docusate Sodium (Colace) 100 mg PO BID [facility] Last Admin: 03/05/17 16:01 Dose: 100 mg Enoxaparin Sodium (Lovenox) 40 mg SC DAILY [facility] PRN Reason: Protocol Last Admin: 03/05/17 08:57 Dose: 40 mg Dextrose/Sodium Chloride (Dextrose 5%/0.45% Ns 1000 Ml) 1,000 mls @ 80 mls/hr IV .[id number] [facility] Stop: 03/06/17 18:27 Last Admin: 03/05/17 21:53 Dose: 80 mls/hr Latanoprost (Xalatan Opht) 1 drop OU HS [facility] Last Admin: 03/05/17 22:01 Dose: 1 drop Prednisolone Acetate (Pred Forte 1% Opht Susp) 1 drop OD QOTHERDAY [facility] Last Admin: 03/05/17 08:58 Dose: 1 drop - Labs Labs: 03/06/17 04:25 03/04/17 06:30 PT 12.9 Seconds (9.8-13.1) 03/06/17 04:25 INR 1.2 (0.9-1.2) 03/06/17 04:25 APTT 26.4 Seconds (25.6-37.1) 03/06/17 04:25 Assessment and Plan (1) Dyspnea Status: Acute (2) Pleural effusion Status: Acute (3) Metastasis to spinal column Status: Acute
[2017-03-06 09:55] LABS: HEPATITIS B SURFACE AG NEGATIVE (NEGATIVE)
[2017-03-06 10:01] LABS: HEPATITIS A IGM NEGATIVE (NEGATIVE); HEPATITIS B CORE AB Negative (NEGATIVE)
--- NOTE | 2017-03-06 10:53 | CP.PCM.PN ---
Subjective - Date & Time of Evaluation Date of Evaluation: 03/06/17 Time of Evaluation: 10:50 - Subjective Subjective: Mr. Deshpande was seen and examined at the bedside. He is alert, oriented in all spheres. He denies any headache, dizziness, lightheadedness, weakness, nausea, or vomiting. He further states that his back pain has been improved since admission. He further claims of able to move around his bed with minimal pain. He is able to follow simple commands. The result of his EEG showed normal with no seizure activity noted. There was no untoward events overnight. Objective - Vital Signs/Intake and Output Vital Signs (last 24 hours): Temp Pulse Resp BP Pulse Ox 98.0 F 83 18 135/81 97 03/06/17 08:00 03/06/17 08:00 03/06/17 08:00 03/06/17 08:00 03/06/17 08:00 - Medications Medications: Current Medications Albuterol Sulfate (Albuterol 0.083% Inhal Ana (2.5 Mg/3 Ml) Ud) 2.5 mg INH RQ4 PRN PRN Reason: Shortness of Breath Aspirin (Aspirin Chewable) 81 mg PO DAILY [facility] Last Admin: 03/05/17 08:58 Dose: 81 mg Atorvastatin Calcium (Lipitor) 40 mg PO DAILY [facility] Last Admin: 03/05/17 08:58 Dose: 40 mg Docusate Sodium (Colace) 100 mg PO BID [facility] Last Admin: 03/05/17 16:01 Dose: 100 mg Enoxaparin Sodium (Lovenox) 40 mg SC DAILY [facility] PRN Reason: Protocol Last Admin: 03/05/17 08:57 Dose: 40 mg Dextrose/Sodium Chloride (Dextrose 5%/0.45% Ns 1000 Ml) 1,000 mls @ 80 mls/hr IV .[id number] [facility] Stop: 03/06/17 18:27 Last Admin: 03/05/17 21:53 Dose: 80 mls/hr Latanoprost (Xalatan Opht) 1 drop OU HS [facility] Last Admin: 03/05/17 22:01 Dose: 1 drop Prednisolone Acetate (Pred Forte 1% Opht Susp) 1 drop OD QOTHERDAY [facility] Last Admin: 03/05/17 08:58 Dose: 1 drop - Labs Labs: 03/06/17 04:25 03/04/17 06:30 PT 12.9 Seconds (9.8-13.1) 03/06/17 04:25 INR 1.2 (0.9-1.2) 03/06/17 04:25 APTT 26.4 Seconds (25.6-37.1) 03/06/17 04:25 - Constitutional Appears: No Acute Distress - Head Exam Head Exam: NORMAL INSPECTION - Neurological Exam Neurological Exam: Alert, Awake, CN II-XII Intact, Oriented x3 Neuro motor strength exam: Left Upper Extremity: 4, Right Upper Extremity: 4, Left Lower Extremity: 4, Right Lower Extremity: 4 Additional comments: Neurological unchanged from previous examination. Assessment and Plan (1) Ischemic stroke Assessment & Plan: Case discussed with Dr. Ventura, continue all current medical regimen. There is no new recommendations from neurology. Status: Acute
[2017-03-06] MEDS ORDERED: Sodium Chloride 0.9% 100 ML IV ONE (11:07)
[2017-03-06] MEDS ORDERED: Midazolam 2 MG/2 ML VIAL ONE (11:35)
[2017-03-06] MEDS ORDERED: Bupivacaine 0.5% Inj(30mL) SC ONE (11:36)
[2017-03-06] MEDS ORDERED: Lidocaine 1% Inj (20ml) ONE (11:59)
[2017-03-06 12:15] LABS: ALBUMIN (PEP) 4.4 g/dL (3.8-4.8); ALPHA-1-GLOBULIN (PEP) 0.5 g/dL (0.2-0.3)
--- NOTE | 2017-03-06 12:24 | PCM.SURG1 ---
Surgeon's Initial Post Op Note - Surgeon's Notes Surgeon: Berto Angel MD Rn Charge: None Type of Anesthesia: Local Pre-Operative Diagnosis: Metastatic Prostate Cancer (presumed) Operative Findings: diffuse sclerotic bony metastases Post-Operative Diagnosis: same Operation Performed: CT Guided RIGHT iliac bone biopsy Specimen/Specimens Removed: 13 gauge core biopsy of right iliac bone x2 Estimated Blood Loss: EBL {In ML}: 5 Date of Surgery/Procedure: 03/06/17 Time of Surgery/Procedure: 12:24
[2017-03-06 12:32] LABS: ALBUMIN (PEP) 3.9 g/dL (3.8-4.8); ALPHA-1-GLOBULIN (PEP) 0.4 g/dL (0.2-0.3)
[2017-03-06 12:53] LABS: ALBUMIN 53.4 Relative %; ALPHA-1 GLOBULIN 7.4 Relative %
[2017-03-06] MEDS ORDERED: Sodium Chloride 0.9% 500 ML IV ONE (12:55)
[2017-03-06 12:58] LABS: HEPATITIS C ANTIBODY REACTIVE (NEGATIVE)
--- NOTE | 2017-03-06 15:23 | CT ---
PROCEDURE: CT-GUIDED RIGHT ILIAC BONE BIOPSY CLINICAL HISTORY: 61-year-old male with suspected metastatic prostate cancer and painful sclerotic osseous metastases is referred to Interventional Radiology for percutaneous image-guided core needle biopsy of a sclerotic lesion. COMPARISON: CT scan the abdomen and pelvis dated 03/02/2017. PROCEDURE: 1. Focused CT of the pelvis. 2. CT-guided core needle biopsy of the right iliac bone. PRE-PROCEDURE FINDINGS: 1. Diffuse patchy osseous sclerotic lesions. POST-PROCEDURE FINDINGS: 1. No evidence of post-procedural complication. INTERVENTIONAL RADIOLOGIST: Berto Angel M.D. (the attending was present for the entire procedure) ANESTHESIA: Provided by the attending anesthesiologist. Sedation was supervised by the anesthesiology attending with the presence of independent radiology nursing monitoring. Physiological data monitoring was performed throughout the entire procedure. The patient's blood pressure, EKG and pulse oximetry were recorded. The patient tolerated the procedure and sedation without untoward reactions. The intra-procedural sedation time was 25 minutes. MEDICATIONS: Lidocaine 1% and Bupivacaine 0.5% for local subcutaneous analgesia. COMPLICATIONS: None. PROCEDURE DESCRIPTION AND FINDINGS: The risks, benefits, alternatives and possible complications of the procedure were fully discussed; all questions were answered and informed consent was obtained. The patient was brought into the interventional suite and a pre-procedure 'time-out' was performed. The patient was placed on the CT table in the supine position. The right iliac bone was localized under CT-guidance and a dari was made on the skin site overlying the lesion. The right pelvis was prepped and draped in the usual sterile fashion. Maximum sterile barrier precautions were maintained throughout the entire procedure. Preliminary focused CT images of the pelvis again demonstrate diffuse patchy osseous sclerotic lesions. Following subcutaneous infiltration of lidocaine 1% and bupivacaine 0.5% for local analgesia, under CT-guidance, an 11-gauge trocar needle was advanced into the right iliac bone. The inner stylet was carefully removed. A 13-gauge bone biopsy needle was coaxially loaded into the introducer needle and a total of 2 core needle biopsies were obtained. The biopsy and trocar needles were removed. Adequate hemostasis was achieved utilizing manual compression. A sterile adhesive dressing was applied over the puncture site. Post-procedure imaging demonstrated no complications. The patient tolerated the procedure well without immediate post-procedure complications and was transferred to the interventional radiology recovery area in stable condition. IMPRESSION: Successful CT-guided superficial core needle biopsy of the right iliac bone. A total of 2 samples were obtained.
[2017-03-06] MEDS: Dextrose 5%/0.45% NS 1,000 ML IV SCH (17:25)
--- NOTE | 2017-03-06 20:33 | CP.PCM.PN ---
Subjective - Date & Time of Evaluation Date of Evaluation: 03/06/17 Time of Evaluation: 22:22 - Subjective Subjective: Bx done today Still with pain Objective - Vital Signs/Intake and Output Vital Signs (last 24 hours): Temp Pulse Resp BP Pulse Ox 98.2 F 92 H 20 139/84 98 03/06/17 19:33 03/06/17 19:33 03/06/17 19:33 03/06/17 19:33 03/06/17 19:33 Intake and Output: 03/06/17 03/07/17 18:59 06:59 Intake Total 100 Balance 100 - Medications Medications: Current Medications Albuterol Sulfate (Albuterol 0.083% Inhal Ana (2.5 Mg/3 Ml) Ud) 2.5 mg INH RQ4 PRN PRN Reason: Shortness of Breath Aspirin (Aspirin Chewable) 81 mg PO DAILY [facility] Last Admin: 03/06/17 17:28 Dose: 81 mg Atorvastatin Calcium (Lipitor) 40 mg PO DAILY [facility] Last Admin: 03/06/17 17:26 Dose: 40 mg Docusate Sodium (Colace) 100 mg PO BID [facility] Last Admin: 03/06/17 17:24 Dose: 100 mg Enoxaparin Sodium (Lovenox) 40 mg SC DAILY [facility] PRN Reason: Protocol Last Admin: 03/05/17 08:57 Dose: 40 mg Latanoprost (Xalatan Opht) 1 drop OU HS [facility] Last Admin: 03/05/17 22:01 Dose: 1 drop Morphine Sulfate (Morphine) 4 mg IVP Q6 PRN PRN Reason: pain 8-10 Last Admin: 03/06/17 19:30 Dose: 4 mg Prednisolone Acetate (Pred Forte 1% Opht Susp) 1 drop OD QOTHERDAY [facility] Last Admin: 03/05/17 08:58 Dose: 1 drop - Labs Labs: 03/06/17 04:25 03/04/17 06:30 PT 12.9 Seconds (9.8-13.1) 03/06/17 04:25 INR 1.2 (0.9-1.2) 03/06/17 04:25 APTT 26.4 Seconds (25.6-37.1) 03/06/17 04:25 - Respiratory Exam Respiratory Exam: NORMAL BREATHING PATTERN - Cardiovascular Exam Cardiovascular Exam: REGULAR RHYTHM - GI/Abdominal Exam GI & Abdominal Exam: Normal Bowel Sounds Assessment and Plan - Assessment and Plan (Free Text) Assessment: SOB/ back pain Bone lesions Prostate Ca with Mets? PE - VQ scan low probability Oncology Pulmonary IR BX done Pancytopenia 2 to above? Hbg 7.3 d/w Oncology Pain 2 to metastatic bone dx Pain management Acute Cerebellar infarct Neurology ASA Lipitor W/U in process HTN Cholest Prediabetes cont meds Metabolic abnormalities Nephrology
[2017-03-06] MEDS: Latanoprost 0.005% Opht SOUTION OU SCH (21:05)
[2017-03-07] MEDS: Morphine 4 MG/ML VIAL IVP PRN ×2 (09:10→18:42)
[2017-03-07] MEDS: PrednisoLONE 1% OPTH SUSP OD SCH (09:17)
[2017-03-07 09:43] LABS: HEMOGLOBIN 7.6 g/dL (12.0-18.0); MEAN CELL VOLUME 94.5 fl (80.0-94.0); MEAN CORPUSCULAR HEMOGLOBIN 32.6 pg (27.0-31.0); MEAN CORPUSCULAR HGB CONC 34.5 g/dL (33.0-37.0); RBC 2.34 Mil/uL (4.40-5.90); RED CELL DISTRIBUTION WIDTH 18.1 % (11.5-14.5); WHITE BLOOD COUNT 3.6 K/uL (4.8-10.8)
[2017-03-07 09:54] LABS: BLOOD UREA NITROGEN 10 mg/dl (9-20); CALCIUM 9.3 mg/dL (8.4-10.2); GFR AFRICAN-AMERICAN > 60; GFR NON-AFRICAN AMERICAN > 60
--- NOTE | 2017-03-07 10:58 | US ---
PROCEDURE: Bilateral lower extremity venous duplex Doppler. HISTORY: r/o dvt COMPARISON: None available. TECHNIQUE: Bilateral common femoral, superficial femoral, popliteal and posterior tibial veins were evaluated. Flow was assessed with color Doppler, compressibility, assessment of phasic flow and augmentation response. FINDINGS: COMMON FEMORAL VEIN: Right CFV: Unremarkable. Left CFV: Unremarkable. SUPERFICIAL FEMORAL VEIN: Right SFV: Unremarkable. Left SFV: Unremarkable. POPLITEAL VEIN: Right Popliteal: Unremarkable. Left Popliteal: Unremarkable. POSTERIOR TIBIAL VEIN: Right PTV: Unremarkable. Left PTV: Unremarkable. OTHER FINDINGS: None. IMPRESSION: No evidence of deep venous thrombosis.
--- NOTE | 2017-03-07 13:09 | CP.PCM.PN ---
Subjective - Date & Time of Evaluation Date of Evaluation: 03/07/17 Time of Evaluation: 11:00 - Subjective Subjective: No complaints to receive 2U PRBC s/p bone lesion biopsy Objective - Vital Signs/Intake and Output Vital Signs (last 24 hours): Temp Pulse Resp BP Pulse Ox 98.8 F 81 18 116/70 100 03/07/17 11:46 03/07/17 11:46 03/07/17 11:46 03/07/17 11:46 03/07/17 11:46 - Medications Medications: Current Medications Albuterol Sulfate (Albuterol 0.083% Inhal Ana (2.5 Mg/3 Ml) Ud) 2.5 mg INH RQ4 PRN PRN Reason: Shortness of Breath Aspirin (Aspirin Chewable) 81 mg PO DAILY [facility] Last Admin: 03/07/17 09:03 Dose: 81 mg Atorvastatin Calcium (Lipitor) 40 mg PO DAILY [facility] Last Admin: 03/07/17 09:04 Dose: 40 mg Docusate Sodium (Colace) 100 mg PO BID [facility] Last Admin: 03/07/17 09:04 Dose: 100 mg Enoxaparin Sodium (Lovenox) 40 mg SC DAILY [facility] PRN Reason: Protocol Last Admin: 03/05/17 08:57 Dose: 40 mg Latanoprost (Xalatan Opht) 1 drop OU HS [facility] Last Admin: 03/06/17 21:05 Dose: 1 drop Morphine Sulfate (Morphine) 4 mg IVP Q6 PRN PRN Reason: pain 8-10 Last Admin: 03/07/17 09:10 Dose: 4 mg Prednisolone Acetate (Pred Forte 1% Opht Susp) 1 drop OD QOTHERDAY [facility] Last Admin: 03/07/17 09:17 Dose: 1 drop - Labs Labs: 03/07/17 09:30 03/07/17 09:30 PT 12.9 Seconds (9.8-13.1) 03/06/17 04:25 INR 1.2 (0.9-1.2) 03/06/17 04:25 APTT 26.4 Seconds (25.6-37.1) 03/06/17 04:25 - Head Exam Head Exam: ATRAUMATIC - Eye Exam Eye Exam: Normal appearance - ENT Exam ENT Exam: Mucous Membranes Dry - Respiratory Exam Respiratory Exam: NORMAL BREATHING PATTERN - Cardiovascular Exam Cardiovascular Exam: +S1, +S2 - GI/Abdominal Exam GI & Abdominal Exam: Normal Bowel Sounds - Extremities Exam Extremities Exam: Normal Inspection Assessment and Plan (1) Pancytopenia Assessment & Plan: likely secondary to bone metastasis for 2U PRBC transfusion today Status: Acute (2) Bone lesion Assessment & Plan: s/p biopsy; f/u results elevated PSA, likely metastatic prostate cancer Status: Acute
--- NOTE | 2017-03-07 16:24 | MRI ---
PROCEDURE: MR Angiography of the neck without contrast HISTORY: Ischemic stroke COMPARISON: None available. TECHNIQUE: 3D [id number] angiography of the neck was performed. Rotating maximum intensity projection images of the cervical carotid and vertebral arteries were generated. The origins of the common carotid arteries were not visualized, which is a limitation inherent to the non-contrast time of flight technique. FINDINGS: RIGHT CAROTID ARTERIES: Common Carotid Artery: Normal. Carotid Bifurcation: Normal. Internal Carotid Artery:Normal. External Carotid Artery (proximal branches): Normal. LEFT CAROTID ARTERIES: Common Carotid Artery: Normal. Carotid Bifurcation: Normal. Internal Carotid Artery:Normal. External Carotid Artery (proximal branches): Normal. VERTEBRAL ARTERIES: Right Vertebral Artery: The right vertebral artery is hypoplastic and there is absent flow related signal in portions of the right vertebral artery. Left Vertebral Artery: Normal. OTHER FINDINGS: None. IMPRESSION: 1. No evidence of hemodynamically significant stenosis in the internal carotid arteries. 2. Hypoplastic right vertebral artery which may be an anatomic variant. Absent flow related signal in portions of the right vertebral artery which could be related to severe atherosclerosis however vertebral dissection cannot be entirely excluded on this examination due to lack of intravenous contrast. If there is a clinical concern, CT angiogram of the neck may be performed for definitive evaluation.
--- NOTE | 2017-03-07 16:59 | MRI ---
PROCEDURE: Magnetic Resonance Angiography Brain HISTORY: ischemic stroke COMPARISON: None available. TECHNIQUE: 3D time of flight MR angiography of the intracranial arteries was performed. Rotating maximum intensity projection images were generated. FINDINGS: INTERNAL CAROTID ARTERIES: Normal in caliber and widely patent. The skull base, petrous, cavernous and supraclinoid segments are bilaterally widely patient. ANTERIOR CEREBRAL ARTERIES: Normal in caliber and widely patent. A1 and A2 segments are widely patent. Smaller distal branches unremarkable, as visualized. MIDDLE CEREBRAL ARTERIES: Normal in caliber and widely patent. M1 and M2 segments are widely patent. Perisylvian branches grossly symmetric. POSTERIOR CIRCULATION: Basilar Artery:Normal in caliber and widely patent. Distal Vertebral Arteries: The right vertebral artery is hypoplastic, likely an anatomic variant The left vertebral artery is normal in caliber and widely patent. Posterior Cerebral Arteries: origin. Normal in caliber and widely patent. Posterior Inferior Cerebellar Arteries: Normal in caliber and widely patent. ANEURYSM/ VASCULAR MALFORMATIONS: None. OTHER FINDINGS: None. IMPRESSION: No evidence of occlusion, definite significant stenosis or saccular aneurysm. origin of bilateral posterior cerebral arteries, an anatomic variant. Hypoplastic right vertebral artery, likely an anatomic variant.
--- NOTE | 2017-03-07 21:05 | CP.PCM.PN ---
Subjective - Date & Time of Evaluation Date of Evaluation: 03/07/17 Time of Evaluation: 22:22 - Subjective Subjective: Pt being transfused Bx results pending Objective - Vital Signs/Intake and Output Vital Signs (last 24 hours): Temp Pulse Resp BP Pulse Ox 98.7 F 86 17 149/82 99 03/07/17 19:42 03/07/17 19:42 03/07/17 19:42 03/07/17 19:42 03/07/17 19:42 - Medications Medications: Current Medications Albuterol Sulfate (Albuterol 0.083% Inhal Ana (2.5 Mg/3 Ml) Ud) 2.5 mg INH RQ4 PRN PRN Reason: Shortness of Breath Aspirin (Aspirin Chewable) 81 mg PO DAILY [facility] Last Admin: 03/07/17 09:03 Dose: 81 mg Atorvastatin Calcium (Lipitor) 40 mg PO DAILY [facility] Last Admin: 03/07/17 09:04 Dose: 40 mg Docusate Sodium (Colace) 100 mg PO BID [facility] Last Admin: 03/07/17 16:37 Dose: Not Given Enoxaparin Sodium (Lovenox) 40 mg SC DAILY [facility] PRN Reason: Protocol Last Admin: 03/05/17 08:57 Dose: 40 mg Latanoprost (Xalatan Opht) 1 drop OU HS [facility] Last Admin: 03/06/17 21:05 Dose: 1 drop Morphine Sulfate (Morphine) 4 mg IVP Q6 PRN PRN Reason: pain 8-10 Last Admin: 03/07/17 18:42 Dose: 4 mg Prednisolone Acetate (Pred Forte 1% Opht Susp) 1 drop OD QOTHERDAY [facility] Last Admin: 03/07/17 09:17 Dose: 1 drop - Labs Labs: 03/07/17 09:30 03/07/17 09:30 PT 12.9 Seconds (9.8-13.1) 03/06/17 04:25 INR 1.2 (0.9-1.2) 03/06/17 04:25 APTT 26.4 Seconds (25.6-37.1) 03/06/17 04:25 - Respiratory Exam Respiratory Exam: NORMAL BREATHING PATTERN - Cardiovascular Exam Cardiovascular Exam: REGULAR RHYTHM - GI/Abdominal Exam GI & Abdominal Exam: Normal Bowel Sounds Assessment and Plan - Assessment and Plan (Free Text) Assessment: SOB/ back pain Bone lesions Prostate Ca with Mets? PE - VQ scan low probability Oncology Pulmonary IR BX results pending Pancytopenia 2 to above? Hbg 7.3 d/w Oncology Pain 2 to metastatic bone dx Pain management Acute Cerebellar infarct Neurology ASA Lipitor W/U in process HTN Cholest Prediabetes cont meds Metabolic abnormalities Nephrology
[2017-03-07] MEDS: Latanoprost 0.005% Opht SOUTION OU SCH (21:07)
[2017-03-08 06:00] LABS: HEMOGLOBIN 8.7 g/dL (12.0-18.0); MEAN CELL VOLUME 94.2 fl (80.0-94.0); RBC 2.72 Mil/uL (4.40-5.90); RED CELL DISTRIBUTION WIDTH 17.1 % (11.5-14.5)
[2017-03-08] MEDS: Morphine 4 MG/ML VIAL IVP PRN ×2 (07:58→19:06)
--- NOTE | 2017-03-08 10:19 | CP.PCM.PN ---
Subjective - Date & Time of Evaluation Date of Evaluation: 03/08/17 Time of Evaluation: 10:16 - Subjective Subjective: Mr. Deshpande was seen and examined at the bedside. He remains alert, oriented in all spheres. He denies any headache, dizziness, lightheadedness, blurred vision , nausea, or vomiting. He states of receiving blood transfusion yesterday and pain medications. There was no untoward events overnight. Objective - Vital Signs/Intake and Output Vital Signs (last 24 hours): Temp Pulse Resp BP Pulse Ox 98.5 F 92 H 18 132/80 98 03/08/17 07:42 03/08/17 09:00 03/08/17 07:42 03/08/17 07:42 03/08/17 07:42 - Medications Medications: Current Medications Albuterol Sulfate (Albuterol 0.083% Inhal Ana (2.5 Mg/3 Ml) Ud) 2.5 mg INH RQ4 PRN PRN Reason: Shortness of Breath Aspirin (Aspirin Chewable) 81 mg PO DAILY [facility] Last Admin: 03/08/17 08:19 Dose: 81 mg Atorvastatin Calcium (Lipitor) 40 mg PO DAILY [facility] Last Admin: 03/08/17 08:19 Dose: 40 mg Docusate Sodium (Colace) 100 mg PO BID [facility] Last Admin: 03/08/17 08:19 Dose: 100 mg Enoxaparin Sodium (Lovenox) 40 mg SC DAILY [facility] PRN Reason: Protocol Last Admin: 03/05/17 08:57 Dose: 40 mg Latanoprost (Xalatan Opht) 1 drop OU HS [facility] Last Admin: 03/07/17 21:07 Dose: 1 drop Morphine Sulfate (Morphine) 4 mg IVP Q6 PRN PRN Reason: pain 8-10 Last Admin: 03/08/17 07:58 Dose: 4 mg Prednisolone Acetate (Pred Forte 1% Opht Susp) 1 drop OD QOTHERDAY [facility] Last Admin: 03/07/17 09:17 Dose: 1 drop - Labs Labs: 03/08/17 04:15 03/07/17 09:30 PT 12.9 Seconds (9.8-13.1) 03/06/17 04:25 INR 1.2 (0.9-1.2) 03/06/17 04:25 APTT 26.4 Seconds (25.6-37.1) 03/06/17 04:25 - Constitutional Appears: No Acute Distress - Head Exam Head Exam: NORMAL INSPECTION - Neurological Exam Neurological Exam: Alert, Awake, CN II-XII Intact, Oriented x3 Neuro motor strength exam: Left Upper Extremity: 5, Right Upper Extremity: 5, Left Lower Extremity: 5, Right Lower Extremity: 5 Additional comments: Neurological unchanged from previous examination. Assessment and Plan (1) Ischemic stroke Assessment & Plan: Case discussed with Dr. Ventura, continue all current medical, physical, and occupational therapies. There is no new recommendations from neurology. Status: Acute
--- NOTE | 2017-03-08 18:43 | CP.PCM.PN ---
Subjective - Date & Time of Evaluation Date of Evaluation: 03/08/17 Time of Evaluation: 22:22 - Subjective Subjective: Doing well Hbg 8.7 Objective - Vital Signs/Intake and Output Vital Signs (last 24 hours): Temp Pulse Resp BP Pulse Ox 98.5 F 85 19 148/84 100 03/08/17 15:54 03/08/17 15:54 03/08/17 15:54 03/08/17 15:54 03/08/17 15:54 - Medications Medications: Current Medications Albuterol Sulfate (Albuterol 0.083% Inhal Ana (2.5 Mg/3 Ml) Ud) 2.5 mg INH RQ4 PRN PRN Reason: Shortness of Breath Aspirin (Aspirin Chewable) 81 mg PO DAILY [facility] Last Admin: 03/08/17 08:19 Dose: 81 mg Atorvastatin Calcium (Lipitor) 40 mg PO DAILY [facility] Last Admin: 03/08/17 08:19 Dose: 40 mg Docusate Sodium (Colace) 100 mg PO BID [facility] Last Admin: 03/08/17 16:43 Dose: 100 mg Enoxaparin Sodium (Lovenox) 40 mg SC DAILY [facility] PRN Reason: Protocol Last Admin: 03/05/17 08:57 Dose: 40 mg Latanoprost (Xalatan Opht) 1 drop OU HS [facility] Last Admin: 03/07/17 21:07 Dose: 1 drop Morphine Sulfate (Morphine) 4 mg IVP Q6 PRN PRN Reason: pain 8-10 Last Admin: 03/08/17 07:58 Dose: 4 mg Prednisolone Acetate (Pred Forte 1% Opht Susp) 1 drop OD QOTHERDAY [facility] Last Admin: 03/07/17 09:17 Dose: 1 drop - Labs Labs: 03/08/17 04:15 03/07/17 09:30 PT 12.9 Seconds (9.8-13.1) 03/06/17 04:25 INR 1.2 (0.9-1.2) 03/06/17 04:25 APTT 26.4 Seconds (25.6-37.1) 03/06/17 04:25 - Respiratory Exam Respiratory Exam: NORMAL BREATHING PATTERN - Cardiovascular Exam Cardiovascular Exam: REGULAR RHYTHM - GI/Abdominal Exam GI & Abdominal Exam: Normal Bowel Sounds Assessment and Plan - Assessment and Plan (Free Text) Assessment: SOB/ back pain Bone lesions Prostate Ca with Mets? PE - VQ scan low probability Oncology Pulmonary IR BX results pending Pancytopenia 2 to above? Hbg 7.3 d/w Oncology Pain 2 to metastatic bone dx Pain management Acute Cerebellar infarct Neurology ASA Lipitor W/U in process HTN Cholest Prediabetes cont meds Metabolic abnormalities Nephrology
[2017-03-08] MEDS: Latanoprost 0.005% Opht SOUTION OU SCH (21:44)
--- NOTE | 2017-03-08 22:28 | CP.PCM.PN ---
Subjective - Date & Time of Evaluation Date of Evaluation: 03/08/17 Time of Evaluation: 10:15 - Subjective Subjective: No complaints s/p PRBC transfusion Objective - Vital Signs/Intake and Output Vital Signs (last 24 hours): Temp Pulse Resp BP Pulse Ox 99.3 F 91 H 18 163/88 H 100 03/08/17 18:58 03/08/17 18:58 03/08/17 18:58 03/08/17 18:58 03/08/17 18:58 - Medications Medications: Current Medications Albuterol Sulfate (Albuterol 0.083% Inhal Ana (2.5 Mg/3 Ml) Ud) 2.5 mg INH RQ4 PRN PRN Reason: Shortness of Breath Aspirin (Aspirin Chewable) 81 mg PO DAILY [facility] Last Admin: 03/08/17 08:19 Dose: 81 mg Atorvastatin Calcium (Lipitor) 40 mg PO DAILY [facility] Last Admin: 03/08/17 08:19 Dose: 40 mg Docusate Sodium (Colace) 100 mg PO BID [facility] Last Admin: 03/08/17 16:43 Dose: 100 mg Enoxaparin Sodium (Lovenox) 40 mg SC DAILY [facility] PRN Reason: Protocol Last Admin: 03/05/17 08:57 Dose: 40 mg Latanoprost (Xalatan Opht) 1 drop OU HS [facility] Last Admin: 03/08/17 21:44 Dose: 1 drop Morphine Sulfate (Morphine) 4 mg IVP Q6 PRN PRN Reason: pain 8-10 Last Admin: 03/08/17 19:06 Dose: 4 mg Prednisolone Acetate (Pred Forte 1% Opht Susp) 1 drop OD QOTHERDAY [facility] Last Admin: 03/07/17 09:17 Dose: 1 drop - Labs Labs: 03/08/17 04:15 03/07/17 09:30 PT 12.9 Seconds (9.8-13.1) 03/06/17 04:25 INR 1.2 (0.9-1.2) 03/06/17 04:25 APTT 26.4 Seconds (25.6-37.1) 03/06/17 04:25 - Head Exam Head Exam: ATRAUMATIC - Eye Exam Eye Exam: Normal appearance - ENT Exam ENT Exam: Mucous Membranes Dry - Respiratory Exam Respiratory Exam: NORMAL BREATHING PATTERN - Cardiovascular Exam Cardiovascular Exam: +S1, +S2 - GI/Abdominal Exam GI & Abdominal Exam: Normal Bowel Sounds - Extremities Exam Extremities Exam: Normal Inspection Assessment and Plan (1) Pancytopenia Assessment & Plan: suspect related to bone metastasis s/p PRBC transfusion Status: Acute (2) Bone lesion Assessment & Plan: elevated PSA, suspect prostate cancer with bone metastasis s/p bone lesion biopsy; f/u path Status: Acute
[2017-03-09] MEDS: Morphine 4 MG/ML VIAL IVP PRN ×3 (03:15→23:06)
[2017-03-09 06:14] LABS: HEMOGLOBIN 10.4 g/dL (12.0-18.0); MEAN CELL VOLUME 94.2 fl (80.0-94.0); MEAN CORPUSCULAR HEMOGLOBIN 31.4 pg (27.0-31.0); MEAN CORPUSCULAR HGB CONC 33.3 g/dL (33.0-37.0); RBC 3.32 Mil/uL (4.40-5.90); RED CELL DISTRIBUTION WIDTH 16.4 % (11.5-14.5); WHITE BLOOD COUNT 7.5 K/uL (4.8-10.8)
--- NOTE | 2017-03-09 09:53 | CP.PCM.PN ---
Subjective - Date & Time of Evaluation Date of Evaluation: 03/09/17 Time of Evaluation: 09:49 - Subjective Subjective: Mr. Deshpande was seen and examined at the bedside. He is alert and oriented in all spheres. He denies any headache, dizziness, lightheadedness, numbness, weakness , nausea, or vomiting. He further states of had the episode of walking around the unit 2 times yesterday during his physical therapy session. He also claims of feeling much better after receiving blood transfusion and as needed pain medication. The echocardiogram showed mild tricuspid regurgitation and EF within normal limits.There was no untoward events overnight. Objective - Vital Signs/Intake and Output Vital Signs (last 24 hours): Temp Pulse Resp BP Pulse Ox 98.7 F 85 18 154/97 H 98 03/09/17 08:43 03/09/17 08:43 03/09/17 08:43 03/09/17 08:43 03/09/17 08:43 - Medications Medications: Current Medications Albuterol Sulfate (Albuterol 0.083% Inhal Ana (2.5 Mg/3 Ml) Ud) 2.5 mg INH RQ4 PRN PRN Reason: Shortness of Breath Aspirin (Aspirin Chewable) 81 mg PO DAILY [facility] Last Admin: 03/08/17 08:19 Dose: 81 mg Atorvastatin Calcium (Lipitor) 40 mg PO DAILY [facility] Last Admin: 03/08/17 08:19 Dose: 40 mg Docusate Sodium (Colace) 100 mg PO BID [facility] Last Admin: 03/08/17 16:43 Dose: 100 mg Enoxaparin Sodium (Lovenox) 40 mg SC DAILY [facility] PRN Reason: Protocol Last Admin: 03/05/17 08:57 Dose: 40 mg Latanoprost (Xalatan Opht) 1 drop OU HS [facility] Last Admin: 03/08/17 21:44 Dose: 1 drop Morphine Sulfate (Morphine) 4 mg IVP Q6 PRN PRN Reason: pain 8-10 Last Admin: 03/09/17 03:15 Dose: 4 mg Prednisolone Acetate (Pred Forte 1% Opht Susp) 1 drop OD QOTHERDAY [facility] Last Admin: 03/07/17 09:17 Dose: 1 drop - Labs Labs: 03/09/17 05:00 03/07/17 09:30 PT 12.9 Seconds (9.8-13.1) 03/06/17 04:25 INR 1.2 (0.9-1.2) 03/06/17 04:25 APTT 26.4 Seconds (25.6-37.1) 03/06/17 04:25 - Constitutional Appears: No Acute Distress - Head Exam Head Exam: NORMAL INSPECTION - Neurological Exam Neurological Exam: Alert, Awake, CN II-XII Intact, Oriented x3 Neuro motor strength exam: Left Upper Extremity: 5, Right Upper Extremity: 5, Left Lower Extremity: 5, Right Lower Extremity: 5 Additional comments: Neurological unchanged from previous examination. Assessment and Plan (1) Ischemic stroke Assessment & Plan: Case discussed with Dr. Ventura, continue all current medical, physical, and occupational therapies. Recommend CTA of the head and neck. Status: Acute
[2017-03-09] MEDS: PrednisoLONE 1% OPTH SUSP OD SCH (10:15)
[2017-03-09] MEDS ORDERED: Iodixanol 320 MG/ML 100 ML BOTTLE IV ONE (13:37)
[2017-03-09] MEDS ORDERED: Sodium Chloride 0.9% 50 ML IV ONE (13:37)
--- NOTE | 2017-03-09 16:19 | CP.PCM.PN ---
Subjective - Date & Time of Evaluation Date of Evaluation: 03/09/17 Time of Evaluation: 11:15 - Subjective Subjective: No complaints feels better s/p 2U PRBC Objective - Vital Signs/Intake and Output Vital Signs (last 24 hours): Temp Pulse Resp BP Pulse Ox 98.4 F 90 20 136/84 99 03/09/17 12:32 03/09/17 12:32 03/09/17 12:32 03/09/17 12:32 03/09/17 12:32 - Medications Medications: Current Medications Albuterol Sulfate (Albuterol 0.083% Inhal Ana (2.5 Mg/3 Ml) Ud) 2.5 mg INH RQ4 PRN PRN Reason: Shortness of Breath Aspirin (Aspirin Chewable) 81 mg PO DAILY [facility] Last Admin: 03/09/17 10:15 Dose: 81 mg Atorvastatin Calcium (Lipitor) 40 mg PO DAILY [facility] Last Admin: 03/09/17 10:15 Dose: 40 mg Docusate Sodium (Colace) 100 mg PO BID [facility] Last Admin: 03/09/17 10:14 Dose: 100 mg Enoxaparin Sodium (Lovenox) 40 mg SC DAILY [facility] PRN Reason: Protocol Last Admin: 03/05/17 08:57 Dose: 40 mg Latanoprost (Xalatan Opht) 1 drop OU HS [facility] Last Admin: 03/08/17 21:44 Dose: 1 drop Morphine Sulfate (Morphine) 4 mg IVP Q6 PRN PRN Reason: pain 8-10 Last Admin: 03/09/17 03:15 Dose: 4 mg Prednisolone Acetate (Pred Forte 1% Opht Susp) 1 drop OD QOTHERDAY [facility] Last Admin: 03/09/17 10:15 Dose: 1 drop - Labs Labs: 03/09/17 05:00 03/07/17 09:30 PT 12.9 Seconds (9.8-13.1) 03/06/17 04:25 INR 1.2 (0.9-1.2) 03/06/17 04:25 APTT 26.4 Seconds (25.6-37.1) 03/06/17 04:25 - Head Exam Head Exam: ATRAUMATIC - Eye Exam Eye Exam: Normal appearance - ENT Exam ENT Exam: Mucous Membranes Dry - Respiratory Exam Respiratory Exam: NORMAL BREATHING PATTERN - Cardiovascular Exam Cardiovascular Exam: +S1, +S2 - GI/Abdominal Exam GI & Abdominal Exam: Normal Bowel Sounds Assessment and Plan (1) Pancytopenia Assessment & Plan: suspect secondary to bone mets Status: Acute (2) Bone lesion Assessment & Plan: suspect metastatic prostate cancer elevated PSA s/p bone lesion biopsy; f/u path Status: Acute
--- NOTE | 2017-03-09 16:39 | CT ---
PROCEDURE: CT Angiography of the Brain. HISTORY: ischemic stroke COMPARISON: None available. TECHNIQUE: CT angiography of the intracranial arteries was performed. Coronal and sagittal maximum intensity projection reformated images were generated. Total exam DLP 559.54 mGy-cm. This CT exam was performed using one or more of the following dose reduction techniques: Automated exposure control, adjustment of the mA and/or kV according to patient size, and/or use of iterative reconstruction technique. FINDINGS: INTERNAL CEREBRAL ARTERIES: Patent without significant stenosis bilaterally. The skull base, petrous, cavernous and supraclinoid segments are bilaterally widely patent. ANTERIOR CEREBRAL ARTERIES: Bilaterally patent. A1 and A2 segments are widely patent. Smaller distal branches unremarkable, as visualized. MIDDLE CEREBRAL ARTERIES: Bilaterally patent. M1 and M2 segments are widely patent. Perisylvian branches grossly symmetric. POSTERIOR CIRCULATION: Basilar Artery: Patent without significant stenosis. Distal Vertebral Arteries: Patent without significant stenosis. Posterior Cerebral Arteries: Patent without significant stenosis. Posterior Inferior Cerebellar Arteries: Unremarkable. NECK CTA: Common carotid arteries: The bilateral common carotid appear widely patent from their origins to their bifurcations with no significant stenosis appreciated. Limited carotid atherosclerosis is appreciated at the bilateral carotid bulbs extending into the internal carotid arteries minimally. No evidence to suggest common carotid artery dissection. Internal carotid arteries: Minimal proximal atherosclerotic changes bilaterally. No significant stenosis is appreciated throughout the cervical internal carotid artery segments bilaterally and there is no evidence of dissection either. Vertebral arteries: There is abnormal contrast enhancement which is minimal through various segments of the proximal mid and distal right vertebral artery suggestive of high-grade arterial disease. Still, dissection is difficult to completely exclude The left vertebral artery appears widely patent without significant stenosis appreciated. Incidentally, the bilateral subclavian arteries are widely patent as well as the brachiocephalic artery. ANEURYSM/ VASCULAR MALFORMATIONS: None. OTHER FINDINGS: Incidental note is made of diffuse metastatic changes throughout the cervical spine, the visualized bony thorax but appearing to spare the calvarium. Bilateral pleural effusions are incidentally noted greater at the right than left. IMPRESSION: Unremarkable CT Angiography of the Brain. Severe arterial disease is favored over dissection of the right vertebral artery dissection, which is difficult to completely exclude from this examination. There is possible with the presence of left cerebellar infarction favors a diagnosis of atherosclerotic disease as no ischemic changes are seen in the right cerebellum or inferior right temporooccipital distribution. Varying high-grade stenoses and occlusion are identified at multiple segments throughout the right vertebral artery with the distal segment appearing patent at the approximate upper C2 level. The left vertebral artery appears unremarkable to its junction with the basilar artery with the basilar artery also patent. Remainder of the neck CTA is unremarkable. Bilateral pleural effusions are incidentally encounter the visualized upper chest as well as diffuse bony metastases as discussed above.
--- NOTE | 2017-03-09 21:02 | CP.PCM.PN ---
Subjective - Date & Time of Evaluation Date of Evaluation: 03/09/17 Time of Evaluation: 22:22 - Subjective Subjective: Above noted Objective - Vital Signs/Intake and Output Vital Signs (last 24 hours): Temp Pulse Resp BP Pulse Ox 97.8 F 79 16 149/77 100 03/09/17 20:30 03/09/17 20:30 03/09/17 20:30 03/09/17 20:30 03/09/17 20:30 - Medications Medications: Current Medications Albuterol Sulfate (Albuterol 0.083% Inhal Ana (2.5 Mg/3 Ml) Ud) 2.5 mg INH RQ4 PRN PRN Reason: Shortness of Breath Aspirin (Aspirin Chewable) 81 mg PO DAILY [facility] Last Admin: 03/09/17 10:15 Dose: 81 mg Atorvastatin Calcium (Lipitor) 40 mg PO DAILY [facility] Last Admin: 03/09/17 10:15 Dose: 40 mg Docusate Sodium (Colace) 100 mg PO BID [facility] Last Admin: 03/09/17 17:05 Dose: 100 mg Enoxaparin Sodium (Lovenox) 40 mg SC DAILY [facility] PRN Reason: Protocol Last Admin: 03/05/17 08:57 Dose: 40 mg Latanoprost (Xalatan Opht) 1 drop OU HS [facility] Last Admin: 03/08/17 21:44 Dose: 1 drop Morphine Sulfate (Morphine) 4 mg IVP Q6 PRN PRN Reason: pain 8-10 Last Admin: 03/09/17 17:07 Dose: 4 mg Prednisolone Acetate (Pred Forte 1% Opht Susp) 1 drop OD QOTHERDAY [facility] Last Admin: 03/09/17 10:15 Dose: 1 drop - Labs Labs: 03/09/17 05:00 03/07/17 09:30 PT 12.9 Seconds (9.8-13.1) 03/06/17 04:25 INR 1.2 (0.9-1.2) 03/06/17 04:25 APTT 26.4 Seconds (25.6-37.1) 03/06/17 04:25 - Respiratory Exam Respiratory Exam: NORMAL BREATHING PATTERN - Cardiovascular Exam Cardiovascular Exam: REGULAR RHYTHM - GI/Abdominal Exam GI & Abdominal Exam: Normal Bowel Sounds Assessment and Plan - Assessment and Plan (Free Text) Assessment: SOB/ back pain Bone lesions Prostate Ca with Mets? PE - VQ scan low probability Oncology Pulmonary IR BX results pending Pancytopenia 2 to above? Hbg 10 d/w Oncology Pain 2 to metastatic bone dx Pain management Acute Cerebellar infarct Neurology ASA Lipitor W/U in process HTN Cholest Prediabetes cont meds Metabolic abnormalities Nephrology
[2017-03-09] MEDS: Latanoprost 0.005% Opht SOUTION OU SCH (21:13)
[2017-03-10] MEDS: Morphine 4 MG/ML VIAL IVP PRN ×2 (09:11→17:32)
--- NOTE | 2017-03-10 10:41 | CP.PCM.PN ---
Subjective - Date & Time of Evaluation Date of Evaluation: 03/10/17 Time of Evaluation: 10:41 - Subjective Subjective: ,Mr. Deshpande was seen and examined at the bedside.He is alert, oriented in all spheres. He denies any headache, dizziness, lightheadedness,numbness, nausea, or vomiting.He states that he had 4 rounds within the unit with the assistance of physical therapist. he further claims of his balance and gait improved since the start of therapy. CTA showed unremarkable CTA of the brain and neck arterial disease of the right vertebral artery. There is the possible with the presence of the left cerebellar infarction. There was no untoward events overnight. Objective - Vital Signs/Intake and Output Vital Signs (last 24 hours): Temp Pulse Resp BP Pulse Ox 99.1 F 100 H 20 140/97 H 97 03/10/17 09:00 03/10/17 09:00 03/10/17 09:00 03/10/17 09:00 03/10/17 09:00 - Medications Medications: Current Medications Albuterol Sulfate (Albuterol 0.083% Inhal Ana (2.5 Mg/3 Ml) Ud) 2.5 mg INH RQ4 PRN PRN Reason: Shortness of Breath Aspirin (Aspirin Chewable) 81 mg PO DAILY [facility] Last Admin: 03/10/17 09:06 Dose: 81 mg Atorvastatin Calcium (Lipitor) 40 mg PO DAILY [facility] Last Admin: 03/10/17 09:06 Dose: 40 mg Docusate Sodium (Colace) 100 mg PO BID [facility] Last Admin: 03/10/17 09:06 Dose: 100 mg Enoxaparin Sodium (Lovenox) 40 mg SC DAILY [facility] PRN Reason: Protocol Last Admin: 03/05/17 08:57 Dose: 40 mg Latanoprost (Xalatan Opht) 1 drop OU HS [facility] Last Admin: 03/09/17 21:13 Dose: 1 drop Morphine Sulfate (Morphine) 4 mg IVP Q6 PRN PRN Reason: pain 8-10 Last Admin: 03/10/17 09:11 Dose: 4 mg Prednisolone Acetate (Pred Forte 1% Opht Susp) 1 drop OD QOTHERDAY [facility] Last Admin: 03/09/17 10:15 Dose: 1 drop - Labs Labs: 03/09/17 05:00 03/07/17 09:30 PT 12.9 Seconds (9.8-13.1) 03/06/17 04:25 INR 1.2 (0.9-1.2) 03/06/17 04:25 APTT 26.4 Seconds (25.6-37.1) 03/06/17 04:25 - Constitutional Appears: No Acute Distress - Head Exam Head Exam: NORMAL INSPECTION - Neurological Exam Neurological Exam: Alert, Awake, CN II-XII Intact, Oriented x3 Neuro motor strength exam: Left Upper Extremity: 4, Right Upper Extremity: 4, Left Lower Extremity: 4, Right Lower Extremity: 4 Additional comments: Neurological unchanged from previous examination. Assessment and Plan (1) Ischemic stroke Assessment & Plan: Case discussed with Dr. Ventura, continue all current medical regimen. Recommend to continue aspirin and statin due to the results of CTA. The patient also has other co-morbidities that is more urgent at this point. Status: Acute
--- NOTE | 2017-03-10 11:17 | CP.PCM.PCO ---
Assessment & Plan - Assessment and Plan (Free Text) Assessment: Patient seen and examined. Pt in NAD, vitals stable. Patient walking with physical therapy. Plan for discharge home on aspirin and statin for stroke and vertebral occlusion , discussed with Jaya VARGAS with Dr Ventura. Follow up with Dr Goldsmith for pathology results of biopsy and follow up with treatment. Pain meds for 1 week given to patient untill he goes for his follow up appt. Discussed with Dr Davalos who agrees with discharge.
[2017-03-10 12:13] VITALS: O2SAT 98
[2017-03-10 16:57] VITALS: BP 126/73; PULSE 84; RESP 20; TEMP 98.2
--- NOTE | 2017-03-10 19:16 | CP.PCM.PN ---
Subjective - Date & Time of Evaluation Date of Evaluation: 03/10/17 Time of Evaluation: 22:22 - Subjective Subjective: Above noted Objective - Vital Signs/Intake and Output Vital Signs (last 24 hours): Temp Pulse Resp BP Pulse Ox 98.2 F 84 20 126/73 98 03/10/17 16:55 03/10/17 16:55 03/10/17 16:55 03/10/17 16:55 03/10/17 16:55 - Medications Medications: Current Medications Albuterol Sulfate (Albuterol 0.083% Inhal Ana (2.5 Mg/3 Ml) Ud) 2.5 mg INH RQ4 PRN PRN Reason: Shortness of Breath Aspirin (Aspirin Chewable) 81 mg PO DAILY [facility] Last Admin: 03/10/17 09:06 Dose: 81 mg Atorvastatin Calcium (Lipitor) 40 mg PO DAILY [facility] Last Admin: 03/10/17 09:06 Dose: 40 mg Docusate Sodium (Colace) 100 mg PO BID [facility] Last Admin: 03/10/17 17:21 Dose: 100 mg Enoxaparin Sodium (Lovenox) 40 mg SC DAILY [facility] PRN Reason: Protocol Last Admin: 03/05/17 08:57 Dose: 40 mg Latanoprost (Xalatan Opht) 1 drop OU HS [facility] Last Admin: 03/09/17 21:13 Dose: 1 drop Morphine Sulfate (Morphine) 4 mg IVP Q6 PRN PRN Reason: pain 8-10 Last Admin: 03/10/17 17:32 Dose: 4 mg Prednisolone Acetate (Pred Forte 1% Opht Susp) 1 drop OD QOTHERDAY [facility] Last Admin: 03/09/17 10:15 Dose: 1 drop - Labs Labs: 03/09/17 05:00 03/07/17 09:30 PT 12.9 Seconds (9.8-13.1) 03/06/17 04:25 INR 1.2 (0.9-1.2) 03/06/17 04:25 APTT 26.4 Seconds (25.6-37.1) 03/06/17 04:25 - Respiratory Exam Respiratory Exam: Wheezes, NORMAL BREATHING PATTERN - Cardiovascular Exam Cardiovascular Exam: REGULAR RHYTHM - GI/Abdominal Exam GI & Abdominal Exam: Normal Bowel Sounds Assessment and Plan - Assessment and Plan (Free Text) Assessment: SOB/ back pain Bone lesions Prostate Ca with Mets? PE - VQ scan low probability Oncology Pulmonary IR BX results pending Pancytopenia 2 to above? Hbg 10 d/w Oncology Pain 2 to metastatic bone dx Pain management Acute Cerebellar infarct Vertebral artery occlusion As per Neurology ASA Lipitor HTN Cholest Prediabetes cont meds Metabolic abnormalities Nephrology
--- NOTE | 2017-03-11 23:53 | CP.PCM.PN ---
Subjective - Date & Time of Evaluation Date of Evaluation: 03/10/17 Time of Evaluation: 11:00 - Subjective Subjective: No complaints. Objective - Vital Signs/Intake and Output Vital Signs (last 24 hours): Temp Pulse Resp BP Pulse Ox 98.2 F 84 20 126/73 98 03/10/17 16:55 03/10/17 16:55 03/10/17 16:55 03/10/17 16:55 03/10/17 16:55 - Labs Labs: 03/09/17 05:00 03/07/17 09:30 PT 12.9 Seconds (9.8-13.1) 03/06/17 04:25 INR 1.2 (0.9-1.2) 03/06/17 04:25 APTT 26.4 Seconds (25.6-37.1) 03/06/17 04:25 - Head Exam Head Exam: ATRAUMATIC - Eye Exam Eye Exam: Normal appearance - ENT Exam ENT Exam: Mucous Membranes Dry - Respiratory Exam Respiratory Exam: NORMAL BREATHING PATTERN - Cardiovascular Exam Cardiovascular Exam: +S1, +S2 - GI/Abdominal Exam GI & Abdominal Exam: Normal Bowel Sounds - Extremities Exam Extremities Exam: Normal Inspection Assessment and Plan (1) Pancytopenia Assessment & Plan: likely from bone metastasis s/p bone lesion biopsy Status: Acute (2) Bone lesion Assessment & Plan: s/p biopsy outpatient f/u Status: Acute
== END 2017-03-10 20:12 | disposition home or self-care (01) | DRG 477 ==
LOC: H.ER 12:40 → H.ERHOLD 17:27 → H.TEL 21:16
PROVIDERS: ADMIT Family Medicine Geriatric Medicine; ATTEND Family Medicine Geriatric Medicine
PROC: 3E0234Z Introduction of Serum, Toxoid and Vaccine into Muscle, Percutaneous Approach (ICD-10-PCS; 2017-03-03)
PROC: 0QB23ZX Excision of Right Pelvic Bone, Percutaneous Approach, Diagnostic (ICD-10-PCS; principal; 2017-03-06 11:30)
PROC: 30233N1 Transfusion of Nonautologous Red Blood Cells into Peripheral Vein, Percutaneous Approach (ICD-10-PCS; 2017-03-07)
DX: C79.51 Secondary malignant neoplasm of bone (principal); I63.9 Cerebral infarction, unspecified; E22.2 Syndrome of inappropriate secretion of antidiuretic hormone; D61.818 Other pancytopenia; E87.3 Alkalosis; J90 Pleural effusion, not elsewhere classified; E83.52 Hypercalcemia; C61 Malignant neoplasm of prostate; Z23 Encounter for immunization; Z87.891 Personal history of nicotine dependence; Z96.643 Presence of artificial hip joint, bilateral; E78.5 Hyperlipidemia, unspecified; H40.9 Unspecified glaucoma; G89.3 Neoplasm related pain (acute) (chronic); E78.00 Pure hypercholesterolemia, unspecified; R73.03 Prediabetes; E88.9 Metabolic disorder, unspecified; I65.09 Occlusion and stenosis of unspecified vertebral artery; I10 Essential (primary) hypertension; R91.1 Solitary pulmonary nodule; D64.9 Anemia, unspecified; J45.909 Unspecified asthma, uncomplicated